=== PATIENT | male | born 1975 | race Caucasian/White ===

== ENCOUNTER 2018-11-09 09:38 | Outpatient (CLI) | payer SELFPAY ==
[2018-11-09 13:23] LABS: Anion Gap 9.7 mmol/L (3-11); BUN 24 mg/dL (7-18); CO2 26.3 mmol/L (21.0-32.0); CREATININE 0.82 mg/dL (0.70-1.30); Calcium 8.5 mg/dL (8.5-10.1); Calculated LDL 118 mg/dL; Chloride 108 mmol/L (98-107); Cholesterol 154 mg/dL (50-200); Glucose 89 mg/dL (70-100); HDL Cholesterol 24 mg/dL (40-60); Potassium 4.5 mmol/L (3.5-5.1); Sodium 144 mmol/L (136-145); Triglyceride 60 mg/dL (30-150)
== END 2018-11-09 09:58 ==
PROVIDERS: PCP Family Medicine; Visit Provider Family Medicine
DX: Z00.00 Encounter for general adult medical examination without abnormal findings (principal); Z13.220 Encounter for screening for lipoid disorders; Z13.228 Encounter for screening for other metabolic disorders
CPT/HCPCS: 36415; 80048; 80061; 83721

== ENCOUNTER 2021-01-28 15:49 | Emergency (ER) | payer SELFPAY ==
[2021-01-28 16:00] VITALS: BP 147/70; PULSE 85; RESP 28; TEMP 36.6; O2SAT 99
--- NOTE | 2021-01-28 16:00 | DI.CT_ITS ---
Exam(s) CT PELVIC WO EXAM: CT PELVIC WO CLINICAL HISTORY: pinned by truck, pain. TECHNIQUE: Imaging Protocol: Axial computed tomography images with coronal and sagittal reformatted images were created and reviewed. CONTRAST MATERIAL: Noncontrast COMPARISON: No exams were available for comparison FINDINGS: Bladder: Symmetric distention, no gross wall thickening. Bowel: No obstruction or bowel wall thickening. Moderate stool. Peritoneal cavity: No ascites, collection or mesenteric inflammatory response. Bones: No evidence of fracture. Sacralization of L5. SI joints and pubic symphysis are intact. Soft tissues: No hematoma. Small fatty containing umbilical hernia. IMPRESSION: No acute abnormality. RADIATION DOSE DELIVERED: 565.49mGy.cmTotal DLP DATA REPOSITORY: All CT scans at this facility are submitted to the National Radiology Data Registry (NRDR) Dose Index Registry (DIR) with the [employer] (ACR). RADIATION OPTIMIZATION: All CT scans at this facility use at least one of these dose optimization te chniques: automated exposure control; mA and/or kV adjustment per patient size (includes targeted exa ms where dose is matched to clinical indication); or iterative reconstruction.
--- NOTE | 2021-01-28 16:08 | W.ED.GENAD ---
Discharge Plan Disposition Patient Disposition: HOME Condition: Stable Discharge Details Chief Complaint: Trauma Clinical Impression: Contusion of hip, Trauma left hip Primary Care Provider: Unknown,Unknown ED Provider: Darryn Luis Home Meds and New Rx's Prescriptions: No Action NO DAILY MEDICATIONS RF: 0 Discharge Instructions Instructions: Contusion in Adults (ED) Additional Instructions: your imaging did not show any broken bones, you likely have a bone contusion you can take 1000mg tylenol and 600mg ibuprofen every 6 hours for pain as needed if you feel more ill, have severe worsening pain or new pain such as abdominal pain return to the emergency department Medical Decision Making 45 yo male comes in with hip pain. He was underneath his truck doing work when it moved and rolled hitting her hip and his other hip was against another object. He denies other injuries or hitting his head. He has bilateral hip pain and has abrasions over both lateral hips. He is able to lift the legs off the bed and has intact distal sensaiton. HAs no abdominal tenderness or chest tenderness, no neck or head pain. The truck did not roll over hip completely. Given his pain will obtain imaging to evaluate for fracture. Given the truck did not roll over his abdomen and had no other trauma elsewhere do not feel other imaging indicated at this time imaging negative, he feels much better and is ambulating without assistance, still no abdomen, chest or back tenderness. STable for d/c, return precautions given Differential Diagnosis Differential Diagnosis: fracture, contusion Imaging Data Radiologic Study: Attestation: I personally reviewed and interpreted this imaging study as follows: Imaging: CT Scan Radiologist's impression: PROCEDURE INFORMATION: Exam: CT Pelvis Without Contrast; Skeletal Exam date and time: 01/28/2021 4:34 PM Age: 45 years old Clinical indication: Injury or trauma; Other: Pinned by truck, pain; Crushing; Bilateral; Pelvic region; Pelvic area TECHNIQUE: Imaging protocol: Computed tomography images of the pelvis without contrast. Exam focused on the skeletal structures. COMPARISON: No relevant prior studies available. FINDINGS: Stomach and bowel: Moderate fecal retention pattern. No abnormal distention. Bones/joints: Unremarkable. No acute fracture. No dislocation. Soft tissues: Unremarkable. IMPRESSION: No evidence for acute posttraumatic abnormality. New lines small, fat containing periumbilical hernia. HPI General Mode of arrival: ambulatory. Date/Time Provider Initiated Documentation: 01/28/21 15:53. Limitations to Documentation: no limitations. Information obtained by: patient. History of Present Illness 45 year old M presents to the emergency department with the chief complaint of hip pain, described as severe, and it has been constant. No relieving factors improve symptom(s), No exacerbating factors reported . Patient notes no other symptoms.. Related Data Home Medications Medication Instructions Recorded Confirmed No Daily Medications 02/11/13 07/07/18 Allergies Allergy/AdvReac Type Severity Reaction Status Date / Time Penicillins Allergy Mild BLISTERS Unverified 01/28/21 16:04 HANDS azithromycin AdvReac Severe DEPRESSION/ Unverified 01/28/21 16:04 ANXIETY sertraline AdvReac Intermediate Erectile Unverified 01/28/21 16:04 dysfunction General Stated Complaint: Trauma MOON: 2 Review of Systems All systems reviewed & are unremarkable except as noted in HPI and below Constitutional Constitutional: Denies chills, Denies fever(s) and Denies weakness Cardiovascular Cardiovascular: Denies chest pain and Denies dyspnea Respiratory Respiratory: Denies cough and Denies dyspnea Gastrointestinal Gastrointestinal: Denies abdominal pain, Denies nausea and Denies vomiting Musculoskeletal Musculoskeletal: Denies joint swelling Neurologic Neurologic: Denies weakness PFSH Family History Mother , 86 No problems noted. Social History (Updated 10/19/18 @ 10:05 by Tai Gastelum) Smoking/Tobacco Use Status: Current every day Tobacco Type: cigarettes Quit status: considering quitting Smoking risk assessment performed?: Yes Alcohol Intake: current Alcohol Intake frequency: holidays/special occasions only Alcohol type: hard liquor Drug use: Never Substance use type: does not use Caregiver/Support person: No Household members: none Communication Needs: Corrective Lenses Pets and animals: Yes Pets and animals: dog(s) Sexually active: No Do you think of yourself as: straight/heterosexual Current gender identity: male What is your relationship status?: never How often do you talk on the phone with friends or family?: decline to answer How often do you get together with friends or relatives?: decline to answer How often do you attend anglican or restorationist services?: decline to answer Do you belong to any clubs or organized social groups?: no Panel score (0-1 are the most socially isolated patients): 0 What type of physical activity do you participate in: none Jodee/Pentecostal: Denominational Special jodee needs: No Seatbelt use: never Drive intox or ride w/intox boat driver: No Exam Const General: no acute distress Orientation: alert HENMT Head: normal to inspection Ears: external ears normal General nose exam: external nose normal Mouth: moist mucous membranes Eyes General: appearance normal, both eyes and all related structures Neck Neck: normal visual inspection Resp Effort & Inspection: normal respiratory effort and able to speak in complete sentences Cardio Rate: regular rate Skin General skin exam: no rashes or lesions noted Neuro General: patient alert and patient oriented x3 Extrem General: capillary refill normal Psych Mental Status: mental status grossly normal Course Vital Signs Vital signs: Vital Signs Temperature 36.6 C 01/28/21 16:00 Pulse 85 01/28/21 16:00 Respiratory Rate 28 H 01/28/21 16:00 Blood Pressure 147/70 H 01/28/21 16:00 Pulse Oximetry 99 01/28/21 16:00 Temperature 36.6 C 01/28/21 16:00 Temperature Source Temporal Artery Scan 01/28/21 16:00 Pulse 85 01/28/21 16:00 Respiratory Rate 28 H 01/28/21 16:00 Blood Pressure 147/70 H 01/28/21 16:00 Blood Pressure Position Supine 01/28/21 16:00 Pulse Oximetry 99 01/28/21 16:00 Oxygen Delivery Method Room Air 01/28/21 16:00 Oxygen Flow Rate 0 01/28/21 16:00 Pain Level 10 01/28/21 16:00
[2021-01-28] MEDS: oxyCODONE 10 MG TAB PO (16:11)
--- NOTE | 2021-01-28 16:55 | DI.VRAD_ITS ---
PROCEDURE INFORMATION: Exam: CT Pelvis Without Contrast; Skeletal Exam date and time: 01/28/2021 4:34 PM Age: 45 years old Clinical indication: Injury or trauma; Other: Pinned by truck, pain; Crushing; Bilateral; Pelvic region; Pelvic area TECHNIQUE: Imaging protocol: Computed tomography images of the pelvis without contrast. Exam focused on the skeletal structures. COMPARISON: No relevant prior studies available. FINDINGS: Stomach and bowel: Moderate fecal retention pattern. No abnormal distention. Bones/joints: Unremarkable. No acute fracture. No dislocation. Soft tissues: Unremarkable. IMPRESSION: No evidence for acute posttraumatic abnormality. New lines small, fat containing periumbilical hernia. Dictated and Authenticated by: Delisa Mcgovern MD. Ordering:GEOVANY Cates MD
[2021-01-28 17:14] VITALS: BP 138/85; PULSE 87; RESP 16; TEMP 37.4; O2SAT 96
[2021-01-28 17:28] VITALS: BP 138/85; PULSE 87; RESP 16; TEMP 37.4; O2SAT 96
== END 2021-01-28 17:25 | disposition home or self-care (01) ==
PROVIDERS: Emergency Provider Emergency Medicine
DX: S70.02XA Contusion of left hip, initial encounter (principal); W20.8XXA Other cause of strike by thrown, projected or falling object, initial encounter
CPT/HCPCS: 99284; 72192; 99283

== ENCOUNTER 2021-02-16 15:16 | Outpatient (REF) | payer SELFPAY ==
[2021-02-16 21:27] LABS: Abs Immature Grans 0.01 10^3/uL (0.0-0.06); Absolute Basophil Count 0.05 10^3/uL (0.0-0.2); Absolute Eosinophil Count 0.23 10^3/uL (0.0-0.7); Absolute Lymphocyte Count 2.26 10^3/uL (1.2-3.4); Absolute Monocyte Count 0.65 10^3/uL (0.1-0.8); Absolute Neutrophil Count 4.03 10^3/uL (1.2-6.7); Basophils % 0.7; Eosinophils % 3.2; HCT 45.8 % (40.0-50.0); HGB 15.4 g/dL (13.5-17.5); Immature Grans % 0.1; Lymphocytes % 31.3; MCH 32.7 pg (27.0-33.0); MCHC 33.6 % (32.0-36.0); MCV 97.2 fL (80-95); MPV 10.4 fL (8.0-11.0); Neutrophils % 55.7; Nucleated RBC 0 %; Platelet Count 342 10^3/uL (130-400); RBC 4.71 10^6/uL (4.36-5.78); RDW-SD 43.6 fL; WBC 7.23 10^3/uL (4.4-10.8)
[2021-02-16 21:30] LABS: ESR 8 mm/hr (0-15)
[2021-02-16 21:36] LABS: Anion Gap 5.4 mmol/L (3-11); BUN 10 mg/dL (7-18); CO2 33.6 mmol/L (21.0-32.0); CREATININE 1.1 mg/dL (0.70-1.30); Calcium 9.3 mg/dL (8.5-10.1); Chloride 106 mmol/L (98-107); Glucose 96 mg/dL (74-106); Potassium 4.3 mmol/L (3.5-5.1); Sodium 145 mmol/L (136-145); Uric Acid 6.4 mg/dL (3.5-7.2)
== END 2021-02-16 15:17 | disposition home or self-care (01) ==
LOC: NCHCN 15:16
PROVIDERS: Visit Provider Family Medicine
DX: M25.561 Pain in right knee (principal)
CPT/HCPCS: 80048; 85652; 84550; 85025

== ENCOUNTER 2021-09-21 11:57 | Day surgery (SDC) | payer SELFPAY ==
--- NOTE | 2021-09-20 11:47 | W.COLOREPORT ---
Colonoscopy Report Date of procedure: 09/21/21 Pre-op diagnosis general: Diarrhea. Possible IBS-M Post-op diagnosis procedure note: other (polyp) Surgeon: Hope Hammond Anesthesia Type: General:No Airway Complications: None Disposition: same day Prep: Miralax/Dulcolax Retraction Time: 10 Procedure Description: After informed consent was obtained the patient was taken to the procedure room and placed in a left decubitous position. Monitors were applied and a time out was done. The patients name, date of , procedure, allergies to medications and metal in their body was reviewed. The patient was then sedated. Once sedated and comfortable a rectal exam was done. External exam was normal. Internal exam revealed a normal sphincter tone and no palpable masses. The prostate nl. The scope was then introduced and retrofelexed. Grade 1 internal hemorrhoids were identified. The scope was then advanced to the cecum without difficulty. The TI and appendiceal orifice were identified. The prep was the BPS 2 in the cecum and right colon, and a BB PS 3 in all other segments for a total of 8. The scope was then slowly retracted over 10 minutes back into the rectum. He had a 0.75 pedunculated polyp at 20 cm. This is removed with a cold snare. The polyp was retrieved. There is no bleeding noted. There are no AVMs or diverticula visualized. The mucosa is pink and healthy with a normal vascular pattern. I could not cannulate the terminal ileum. Biopsies are taken of the cecum/80/60/40cm /rectum. All specimens are retrieved and no bleeding is noted. The scope was removed and the patient was woken up and taken back to Same day surgery in stable condition. The patient tolerated the procedure well and there were no immediate complications. Follow up: The patient should follow up, path pending, unless they develop changes in bowel habits or other new gastrointestinal complaints.
--- NOTE | 2021-09-20 11:48 | PDOC.DSDIS_ITS ---
Discharge Plan Disposition Patient Disposition: HOME Condition: Good Discharge Details Reason For Visit: colon scope Attending Provider: Hope Hammond Primary Care Provider: Sindi Montgomery Home Meds and New Rx's Prescriptions: Continued NO DAILY MEDICATIONS Discontinued polyethylene glycol 3350 17 gram/dose powder 238 g PO ONCE Qty: 238 0RF Rx Instructions: take per colonoscopy instructions bisacodyl [Dulcolax (bisacodyl)] 5 mg tablet,delayed release (DR/EC) 5 mg PO ONCE Qty: 4 0RF Rx Instructions: take per colonoscopy instructions Discharge Instructions Additional Instructions: DSU Colonoscopy Post- Op Instructions Instructions for Everyone who is given Anesthesia: For your safety, please do the following for the next twenty-four (24) hours: *Do Not operate a motor vehicle (car, truck, motorcycle, etc.) *Do Not drink alcoholic beverages or use any recreational drugs for the first 24 hours or while taking pain medications. The medications in your body may have a reaction that can be dangerous. *Do Not make any important decisions or sign any important papers. Findings: small polyp otherwise normal. Follow up: F/u in 2-3 wks. 1. No lifting over 20 pounds or strenuous activity for the first 24 hours after your procedure. After 24 hours there are no restrictions on your activity but you may feel fatigued for a few days. 2. After you arrive home you may have a light meal and return to your normal diet as you can tolerate it without feeling sick to your stomach. 3. You may have a bloated, gaseous feeling in your belly (abdomen) after a colonoscopy. Passing gas and belching will help. Walking or lying down on your left side with your knees flexed may relieve the discomfort. Call the office at [phone] (Office) or [phone] (Hospital) right away if you notice any of the following: a.Vomiting of blood or ?coffee ground stools?. b.Rectal bleeding 1Tbsp, blood clots or continuous bleeding. c.Severe belly (abdominal) pain. d.A hard distended belly (abdomen) and an inability to pass gas. 4. Please don?t expect to have a normal BM (bowel movement) for 2-3 days after your procedure. 5. If there are questions regarding the findings of your procedure, please contact your doctor 6. If you are unable to contact your doctor with a problem, contact the [facility] at [phone]. 7. Continue all your regular medications unless directed otherwise. I understand the above instructions and have no questions. Signature of Patient or Adult Escort Name of Responsible Adult Escort Signature of Nurse Date/Time Activity:: See above Diet:: See above Discharge Orders Discharge Orders: Discharge Order (Routine); Ordered 09/20/21 Ordered By: Hope Hammond
[2021-09-21 12:10] VITALS: BP 116/72; PULSE 67; RESP 17; TEMP 36.7; O2SAT 98
[2021-09-21] MEDS: Lactated Ringers 1,000 ML 80 ML IV (12:25)
--- NOTE | 2021-09-21 12:54 | W.ANESPRE ---
General Info Date of Service Date Performed: 09/21/21 Height: 5 ft 11 in Weight: 80.8 kg Body Mass Index (BMI): 24.8 Surgical Procedure: Operation Date: 09/21/21 12:35 Proposed Procedure Side Surgeon p Colonoscopy w/Biopsy Hope Hammond, Meds Allergies and Home Medications Allergies Allergy/AdvReac Type Severity Reaction Status Date / Time Penicillins Allergy Mild BLISTERS Unverified 09/21/21 12:17 HANDS azithromycin AdvReac Severe DEPRESSION/ Unverified 09/21/21 12:17 ANXIETY venlafaxine AdvReac Severe None noted Verified 09/21/21 12:17 on referral sertraline AdvReac Intermediate Erectile Unverified 09/21/21 12:17 dysfunction Home Medication Medication Instructions Recorded No Daily Medications 02/11/13 Current Visit Medications: Current Medications Generic Name Dose Route Start Last Admin Trade Name Freq PRN Reason Stop Dose Admin Hyoscyamine Sulfate 0.125 mg 09/20/21 11:49 Hyoscyamine 0.125 Mg Sl/Oral/Chew SL DIRECTED PRN Ringer's Solution 1,000 mls @ 80 mls/hr 09/21/21 06:00 09/21/21 12:25 IV 09/25/21 23:59 80 mls/hr INFUSION TRAVIS Administration IV Miscellaneous Supplies 1 each 09/21/21 06:00 Iv Access IV 09/25/21 23:59 DIRECTED TRAVIS Ondansetron HCl 4 mg 09/20/21 11:49 Ondansetron 4 Mg/2 Ml Vial IVP Q4H PRN PRN Nausea / Vomiting Sodium Chloride 0 ml 09/21/21 06:00 Normal Saline Flush 10 Ml Syr IV 09/25/21 23:59 PRN PRN Sodium Chloride 0 ml 09/21/21 06:00 Normal Saline 10 Ml Vial IJ 09/25/21 23:59 DIRECTED PRN Sterile Water 0 ml 09/21/21 06:00 Water,Injection,Sterile 10 Ml Vial IJ 09/25/21 23:59 DIRECTED PRN PFSH Active Problems Active Problems: Problem Status Onset Code Chondrocalcinosis M11.20 Current tobacco use Z72.0 Rectal discharge R19.8 Irregular bowel habits R19.8 Fecal incontinence R15.9 Medical History Medical History Bilateral low back pain without sciatica (06/23/15) Cataract Constipation by delayed colonic transit (12/08/15) Contusion of hip Dysthymia (10/13/15) IBS (irritable bowel syndrome) Left lateral epicondylitis (04/01/16) Trauma left hip Surgical History Surgical History History of knee surgery Tobacco Smoking/Tobacco Use Status: Current every day Tobacco Type: cigarettes Alcohol Alcohol Intake: current Alcohol intake frequency: holidays/special occasions only Alcohol type: hard liquor Substance Use Substance use: Never Substance use type: does not use Vital Signs and Lab Results Vital Signs Most Recent Vital Signs in EMR: Most Recent Vital Signs Temp Pulse Resp BP Pulse Ox 36.7 C 67 17 116/72 98 09/21/21 12:10 09/21/21 12:10 09/21/21 12:10 09/21/21 12:10 09/21/21 12:10 Lab Results Blood Type / Crossmatch: No Data to Display Complete Blood Count: No Data to Display Complete Metabolic Panel: No Data to Display Liver Function Panel: No Data to Display Coagulation Panel: No Data to Display Cardiac Panel: No Data to Display Arterial Blood Gas: No Data to Display Venous Blood Gas: No Data to Display Pancreas Panel: No Data to Display Thyroid Panel: No Data to Display Infectious Disease: No Data to Display Blood Cultures: No Data to Display Toxicology Panel: No Data to Display Anesthesia Assessment and Plan Anesthesia History Personal History: No History of Anesthesia Complications Family History: No Family History of Anesthesia Complications Exercise Tolerance Exercise Tolerance: Metabolic Equivalents>4 Pertinent Negatives Pertinent Negatives: No Symptoms of GERD Cardiac & Pulmonary Exam Cardiac Exam: Normal S1/S2 Heart Sounds Pulmonary Exam: Clear Bilateral Breath Sounds Implantable Cardiac Device Does patient have a Pacemaker or an ICD?: No Airway Exam Known Difficult Airway: No Mallampati Class: 1 Mouth Opening: Normal (> 3cm) Thyromental Distance: Greater than 3 cm Facial Hair: Full Nesbitt Neck Range of Motion: Full ROM Neck Circumference: Normal Teeth Condition: Normal Dentition ASA Classification ASA Score: ASA 2 Emergency Case?: No NPO Status NPO Status: NPO Clears >2 hours, Solids >8 hours Anesthesia Plan Resuscitation Status: Full Code Anesthesia Technique: General Anesthesia Airway Planned: Natural Airway Monitors Used: Standard Monitors
[2021-09-21 13:13] VITALS: BMI 24.8
--- NOTE | 2021-09-21 13:32 | BOWEL_PTH ---
PATIENT: Michael Barr I LOC: [facility] U#:[id number] AGE/SX: 45/M ROOM: RE09/21/[address]: Hope Hammond : 1975 BED: DIS: 09/21/2021 SPEC #: [id number] RECD: 09/21/21 15:54 STATUS: TIMOTHY REQ #: [id number] GEETA: 09/21/21 13:[address]: Hope Hammond DEPT: Surgical Specimen RECD BY: Britt Tamayo ENTERED: 09/21/21 15:56 SP TYPE: Bowel OTHR DR: Sindi Montgomery Tissues: 1 - BIOPSY BOWEL 2 - BIOPSY BOWEL 3 - BIOPSY BOWEL 4 - BIOPSY BOWEL 5 - BIOPSY BOWEL 6 - BIOPSY BOWEL Procedures: GROSS AND MICRO LEVEL 4 Comments: [id number]
[2021-09-21 14:07] VITALS: BP 116/72; PULSE 67; RESP 17; TEMP 36.7; O2SAT 98
--- NOTE | 2021-09-21 14:11 | W.ANESPOSTOP ---
Postoperative Evaluation Date, Time and Location Date Performed: 09/21/21 Time Performed: 14:12 Patient Location: Day Surgery Unit Vital Signs Most Recent Imported Vital Signs: Most Recent Vital Signs Temp Pulse Resp BP Pulse Ox 36.7 C 67 17 116/72 98 09/21/21 14:07 09/21/21 14:07 09/21/21 14:07 09/21/21 14:07 09/21/21 14:07 Most Recent Manually Entered Vital Signs: Adult Blood Pressure: 104/70 Heart Rate: 61 Respirations: 12 Oxygen Saturation (%): 99 Temperature (C): 36.3 C Pain Score (0-10 Scale): 0 Pain Score Most Recent Pain Score: Most Recent Pain Score Pain Level 0 09/21/21 12:10 Assessment Mental Status: Awake (Alert & Oriented to Patient Baseline) Airway and Respiratory Function: Patent airway with normal (patient baseline) respiratory exam Cardiovascular Function: Hemodynamically Stable Hydration Status: Adequately Hydrated Nausea & Vomiting: No Nausea or Vomiting Pain: Pt. Denies Any Pain Peripheral Nerve Block: Patient did not receive a nerve block
[2021-09-21 14:12] VITALS: BP 104/70; PULSE 61; RESP 12; TEMPC 36.3; O2SAT 99
[2021-09-21 14:30] VITALS: BP 116/79; PULSE 62; RESP 17; TEMP 36.6; O2SAT 98
== END 2021-09-21 15:15 | disposition home or self-care (01) ==
PROVIDERS: PCP Nurse Practitioner Family; Visit Provider Surgery
PROC: 0DJD8ZZ Inspection of Lower Intestinal Tract, Via Natural or Artificial Opening Endoscopic (ICD-10-PCS; CPT 45378; principal; 2021-09-21 12:30)
DX: R19.7 Diarrhea, unspecified (principal); K63.5 Polyp of colon; K64.0 First degree hemorrhoids; K63.89 Other specified diseases of intestine; K62.89 Other specified diseases of anus and rectum
CPT/HCPCS: 45385; 45380; 88305

== ENCOUNTER 2021-10-19 02:25 | Outpatient (CLI) | payer SELFPAY ==
--- OUTSIDE RECORDS SUMMARY | 2021-10-19 02:27 | XMS_ITS | Encounter Summary ---
:1975 Author Organization [facility] Address [address] [place] [address] Care Team Providers Name Role Phone Unavailable Primary Care Provider Unavailable Reason for Referral Radiology Services (Routine/Next Available) - New Request Specialty Diagnoses / Procedures Referred By Contact Refer red To Contact Diagnoses Left elbow pain Nathaniel Hickey MD Procedures [facility] US ELBOW [address] [place] [address] Referral ID Status Reason Start Date Expiration Date Visits V isits Requested Authorized [id number] New Request 08/07/2017 1 1 Encounter Details Date Type Department Care Team Description 08/07/2017 Orders Only [facility] Nathaniel Hickey Left elbo w pain Sports Medicine MD Lacy (Primary Dx) Program - [address] Geremias Hubbard, [facility] [address] [id number] Social History Tobacco Use Types Packs/Day Years Used Date Never Assessed Sex Assigned at Date Recorded Not on file documented as of this encounter Plan of Treatment Not on filedocumented as of this encounter Procedures Procedure Name Priority Date/Time Associated Diagnosis Comme nts MSK US ELBOW Routine 08/07/2017 17:26 EDT Left elbow pain Resu lts for this procedure are i n the results section . documented in this encounter Results [facility]K US ELBOW (08/07/2017 17:26 EDT) Anatomical Region Laterality Modality Other Specimen Narrative [facility] - 08/07/2017 17:26 EDT Non Reportable Exam Procedure Note KEY HOLDER, IMAGING - 08/08/2017 Non Reportable Exam Performing Organization Address City/State/ZIP Code Phon e Number [facility] [place] documented in this encounter Visit Diagnoses Diagnosis Left elbow pain - Primary Pain in joint, upper arm documented in this encounter
--- OUTSIDE RECORDS SUMMARY | 2021-10-19 02:27 | XMS_ITS | Encounter Summary ---
:1975 Author Organization [facility] Address [address] [place] [address] Care Team Providers Name Role Phone Unavailable Primary Care Provider Unavailable Reason for Visit Reason Onset Date Comments Referral Request 02/17/2020 Encounter Details Date Type Department Care Team Description 02/17/2020 Telephone [facility] Sports Nathaniel Hickey, Referral Request Medicine Program - Omer santiago MD [facility] [address] [place], [place] [address] [place], [place] [phone] (Wo rk) Social History Tobacco Use Types Packs/Day Years Used Date Current Every Day Smoker 1 27 Smokeless Tobacco: Former User Sex Assigned at Date Recorded Not on file documented as of this encounter Functional Status Functional Status Response Date of Assessment Because of a physical, mental, or emotional condition, Yes 09/16/2017 does this person have difficulty doing errands alone such as visiting a doctor's office or shopping? Cognitive Status Response Date of Assessment Because of a physical, mental, or emotional condition, No 09/16/2017 does this person have serious difficulty concentrating, remembering, or making decisions? documented as of this encounter Miscellaneous Notes Telephone Encounter - Nathaniel Hickey MD - 02/20/2020 1533 EDT Referral placed for after 03/21/[address] Mauri Ramos. Nathaniel Hickey M.D. 02/17/2020 15:36 documented in this encounter Plan of Treatment Not on filedocumented as of this encounter Visit Diagnoses Diagnosis Left lateral epicondylitis - Primary Lateral epicondylitis of elbow documented in this encounter
--- OUTSIDE RECORDS SUMMARY | 2021-10-19 02:27 | XMS_ITS | Encounter Summary ---
:1975 Author Organization [facility] Address [address] [place] [address] Care Team Providers Name Role Phone Sindi Montgomery PAVEL Primary Care Provider Reason for Visit Reason Onset Date Comments Paperwork request 10/03/2021 [place] [facility] Josy Sinha Encounter Details Date Type Department Care Team Description 10/03/2021 Telephone [facility] Mauri Ramos Paperwor k request Orthopedic Surgery - MD Tomi ([place] [facility] Cathy Marrero Dr [facility] [employer] [facility] and Katelyn) [address] [place], [place] [address] [place] [address] Social History Tobacco Use Types Packs/Day Years [...] this encounter Miscellaneous Notes Telephone Encounter - Katey Burger - 10/03/2021 1623 EDT Received a letter from patient's match maker concerning getting diagnotic testing authorized that dr. Ramos previously requested. Labelled and put in workers' comp box documented in this encounter Plan of Treatment Not on filedocumented as of this encounter Visit Diagnoses Not on filedocumented in this encounter Care Teams Yield Improvement Engineer Relationship Specialty Start Date End Date Sindi Montgomery FNP PCP - General 08/26/21 [address] [place] [address] documented as of this encounter
--- OUTSIDE RECORDS SUMMARY | 2021-10-19 02:27 | XMS_ITS | Encounter Summary ---
:1975 Author Organization [facility] Address [address] [place] [address] Care Team Providers Name Role Phone Unavailable Primary Care Provider Unavailable Reason for Referral Prior Authorization (Routine) - Specialty Report Received Specialty Diagnoses / Procedures Referred By Contact Refer red To Contact Orthopedic Surgery Diagnoses Left lateral epicondylitis Nathaniel Hickey Lisle, David Knight, MD MD [address] [place] [phone] Fax: Referral ID Status Reason Start Expiration Visits Visits Date Date Requested Authorized [id number] Specialty Specialty 11/04/2017 1 1 Report Services Received Required Question Answer Reason for Request: Left lateral elbow PRP injec tion Scheduling Comments (optional ? Scheduled 02/06/18 describe specific scheduling needs if applicable): Comments The purpose of this consult request is t o inform the scheduling staff that a procedure/surgery needs to be prior-auth orized before it is scheduled. Reason for Visit Reason Comments Follow-up Left elbow Encounter Details Date Type Department Care Team Description 11/04/2017 Office Visit [facility] Nathaniel Hickey Left late [facility] Sports Medicine MD Lacy epicondylitis (Primary Program - [facility] [address] Dx) [address] [facility] [phone] Social History Tobacco Use Types Packs/Day Years [...] making decisions? documented as of this encounter Progress Notes Nathaniel Hickey MD - 11/04/2017 1545 EDT Chief Complaint Patient presents with ??? Follow-up Left elbow SUBJECTIVE: Michael Barr is a 42 y.o. right hand dominant male who presents to the office to follow up now 3 months after his left elbow PRP procedure. He was been doing PT at at [facility] but this was a little rough. He then went to [facility]. This has been going well. He did have a setback about a week ago. More pain but not as bad as before the PRP injection. 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 He has some pain with steering but he swaps it. 3 out of 10 pain. He initially presented with a 2 year history of insidious onset left lateral elbow pain. 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 He has been followed by CAMERON Jay. He has had two corticosteroid injections that helpedquite a bit. The first helped for about seven months. He had a second injection that also helped forabout six months or so. This is a workers compensation injury. DOI 06/06/2015. He is working full duty. No restrictions. Past medical, past surgical, medications, allergies, social history and 12 system ROS were all documented on the intake form. These were reviewed and there are no changes. OBJECTIVE: 6 feet tall, 175 lbs. General: awake, alert, NAD, pleasant EENT: extraocular motion grossly intact Pulmonary: normal respirations, non-labored breathing Psych: normal affect, thoughts are logical and sequential Examination of the left elbow On observation, there is no effusion. There is no ecchymosis over flexor pronator region of forearm.No erythema. On palpation, there is trace tenderness over the lateral epicondyle. There is no tenderness over themedial epicondyle. No tenderness over the cubital tunnel. Range of motion of the elbow is full. Resisted elbow extension reveals 5/5 motor strength. Resisted wrist extension, resisted supination and resisted 3rd and 4th finger extension result in no tenderness at the lateral epicondylar region. Distal neurovascular examination is intact. DIAGNOSTIC DATA: MRI of the left elbow reveals a moderate grade partial tear of the common extensor tendon with tendinosis. Plain films of the left elbow taken today and independently reviewed by me including AP, lateral andoblique views reveal a normal study. ASSESSMENT: Left elbow lateral epicondylosis. He is here for his second follow up 3 months after a PRP injection. He is improving well. He had a small setback a few weeks ago. Still overall he is better than before. Workers compensation injury. PLAN: We discussed the diagnosis and multi-faceted treatment plan. He will continue PT at [facility]. Continue with the activity modification to avoid lifting or carrying. He will return in 2 months. We hope to discuss MMI at that time however if he is not fully improved we will consider repeat PRP. We did grab a date for early January for that PRP procedure just in casehe needs it. The patient verbalized understanding of the above and agreed with this plan. All of his questions were answered to his satisfaction today. 25 minutes of face to face time was spent with the patient, 15 minutes were spent on counseling and coordination of care of the patient's left elbow pain. Nathaniel Hickey M.D. 11/04/2017 15:48 Cc: Tereso Mckeon documented in this encounter Plan of Treatment Scheduled Referrals Name Type Priority Associated Diagnoses Order S chedule AMB CONS/FOLLOW UP Outpatient Routine Left lateral Ordered: PROCEDURE PRIOR Referral epicondylitis 11/04/2017 AUTHORIZATION REQUEST documented as of this encounter Visit Diagnoses Diagnosis Left lateral epicondylitis - Primary Lateral epicondylitis of elbow documented in this encounter
--- OUTSIDE RECORDS SUMMARY | 2021-10-19 02:27 | XMS_ITS | Encounter Summary ---
:1975 Author Organization [facility] Address [address] [place] [address] Care Team Providers Name Role Phone Unavailable Primary Care Provider Unavailable Reason for Referral Referral (Routine) - Pending Review Specialty Diagnoses / Procedures Referred By Contact Refer red To Contact Physical Medicine and Diagnoses Radial tunnel syndrome, left Mauri Ramos [facility] Procedures EMG/NERVE CONDUCTION STUDY Med/Rehab [address] [place] [address] [place] [phone] Fax: Referral ID Status Reason Start Date Expiration Date Visits V isits Requested Authorized [id number] Pending 05/12/2020 1 1 Review Reason for Visit Reason Comments Injury Consult (Routine) - Order Cancelled Specialty Diagnoses / Procedures Referred By Contact Refer red To Contact Orthopedic Surgery Diagnoses Left lateral epicondylitis Nathaniel Hickey [address] [facility] MD [address] [place] [phone] Referral ID Status Reason Start Expiration Visits Visits Date Date Requested Authorized [id number] Order Specialty 1 1 Cancelled Services 0 Required Encounter Details Date Type Department Care Team Description 05/12/2020 Office Visit [facility] Mauri Ramos Radial t unnel syndrome, left (Primary Dx); Orthopedic Surgery - MD Tomi Left lateral epicondylitis García Marrero [address] [place] [id number] [place], [place] [phone] Social History Tobacco Use Types Packs/Day Years Used Date Current Every Day Smoker 1 27 Smokeless Tobacco: Former User Tobacco Cessation: Ready to Quit: Yes; C ounseling Given: Yes Sex Assigned at Date Recorded Not on file documented as of this encounter Last Filed Vital Signs Vital Sign Reading Time Taken Comments Blood Pressure - - Pulse - - Temperature - - Respiratory Rate - - Oxygen Saturation - - Inhaled Oxygen Concentration - - Weight 79.4 kg (175 lb) 05/12/2020 1501 EST pe pt Height 182.9 cm (6') 05/12/2020 1501 EST per pt Body Mass Index 23.73 05/12/2020 1501 EST documented in this encounter Functional Status Functional Status Response [...] documented as of this encounter Progress Notes Mauri Ramos MD - 05/12/2020 1500 EST The patient presents with pain involving his Left elbow. The patient's pain is rated as 0 (No Pain)-2/10 and does not radiate. 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 After receiving a cortisone injection things got better until he changed jobs and began working at [employer] when pain increased. Patient states he received a second injection of cortisone and now has a change in color of the tissue at his elbow. Symptoms are associated with pain with driving, aching, weakness. REVIEW OF SYSTEMS: Yes No Yes No Fever/Chills x Joint pain x Fatigue x Muscle pain x Night sweats x Morning stiffness x Weight change x If yes, duration Gain or loss? Numbness/tingling x Headaches x If yes, where? Dizziness x Muscle weakness x Chest pain x Excessive thirst x Shortness of breath x Change in mood x Cough x Nervous or anxious x Nausea/vomiting x Sad or depressed x Abdomnial pains/cramps x Excessive bruising x Heartburn/Reflux x Urinary Changes x Rash x Balance Issues x The patient is a 44-year-old [id number] man who presents today with left elbow pain. Symptoms began about 5 years ago with a work-related injury due to repetitive opening of espinoza. 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 He had previous cortisone injections for lateral epicondylitis and these gave him relief from symptoms. In 2018 he had a PRP injection with Dr. Hickey which also gave him relieffrom most of his symptoms, however at this point he feels like his left elbow is not normal. He continues to have pain that he rates as anywhere from a 0-2 out of 10. He points to the lateral elbow as the site of the pain. He feels weak at his left arm. He denies any numbness or tingling associated with this. The patient has done extensive physical therapy for this problem. For the lateral epicondylitis he has done anti-inflammatory modalities but also has done strengthening exercises. With his eccentric strengthening exercises for wrist extension he was lifting up to an 8 to 10 pound weight. He has not done this for the last couple months as it did not seem to be fully getting rid of his continued pain. The past medical, family and social history have been reviewed in the patient chart. OBJECTIVE: Ht 182.9 cm (72) Comment: per pt Wt 79.4 kg (175 lb) Comment: pe pt BMI 23.73 kg/m?? Psych: He is alert and oriented x 3 with normal affect. Constitutional: He is well-developed and in no significant distress. Eyes: Sclerae clear. Heart: Regular rate and rhythm Resp: Breathing is regular and nonlabored without audible wheezing. Musculoskeletal: Left elbow: Very mild tenderness is present over the lateral epicondyle. Elbow range of motion is full. Patient really has no pain with resisted wrist extension with the elbow fully extended. The patient does have tenderness over his radial tunnel. A Tinel's sign over the radial tunnel is positive andthe patient has a positive radial tunnel compression test. Supination against resistance does partially recreate the patient's symptoms. The patient has full pronation and supination of his elbow/forearm. No instability is noted at the elbow with varus or valgus stress. Right elbow: No tenderness or swelling is present. Elbow range of motion is full. Provocative testing at the lateral epicondyle and radial tunnel is normal and does not produce any similar pain. The patient has no instability with varus or valgus stress of the elbow. Was able to independently viewed the patient's previous MRI of the elbow. This demonstrated some edema within the common extensor mechanism with no significant joint abnormalities. ASSESSMENT/PLAN: Encounter Diagnoses Name Primary? Left lateral epicondylitis ??? Radial tunnel syndrome, left Yes I believe that the patient has been appropriately treated for his left lateral epicondylitis but probably carries a secondary diagnosis of radial tunnel syndrome. This is probably the cause for the patient's partial failure to fully get rid of symptoms. I would like to try and confirm this with an EMG/nerve conduction study. I will follow-up with the patient after that study is complete. If we see noevidence of radial tunnel syndrome we will discuss further work-up with an MRI versus a cortisone injection into the radial tunnel to try to confirm the diagnosis in that manner. documented in this encounter Plan of Treatment Scheduled Orders Name Type Priority Associated Diagnoses Order S chedule EMG/NERVE CONDUCTION Procedures Routine Radial tunnel Ordere d: 05/12/2020 STUDY syndrome, left documented as of this encounter Visit Diagnoses Diagnosis Radial tunnel syndrome, left - Primary Left lateral epicondylitis Lateral epicondylitis of elbow documented in this encounter
--- OUTSIDE RECORDS SUMMARY | 2021-10-19 02:27 | XMS_ITS | Encounter Summary ---
:[address] [facility] Address [address] [place] [address] Care Team Providers Name Role Phone Sindi Montgomery PAVEL Primary Care Provider Encounter Details Date Type Department Care Team Description 09/21/2021 Lab Requisition [facility] for other Pathology & M, DO general examination Laboratory Medicine - [email or web address] [facility] [address] [place] [phone] Social History Tobacco Use Types Packs/Day Years Used Date Current Every Day Smoker 05 24 Smokeless Tobacco: Former User Sex Assigned at [...] making decisions? documented as of this encounter Plan of Treatment Not on filedocumented as of this encounter Procedures Procedure Name Priority Date/Time Associated Diagnosis Comme nts SURGICAL PATHOLOGY Today 09/21/2021 13:32 Encounter for othe r Results for this EDT general examination procedur e are in the results section. documented in this encounter Results SURGICAL PATHOLOGY (09/21/2021 13:32 EDT) Note to Patient The following [facility] pathology results CENTER have been interpreted LABORATORY by your pathologist SERVICES and may be available to you before your health provider has had the opportunity to review them. Please allow time for your provider to receive these results and explore management options, if applicable. Final Diagnosis A. COLON, 20 CM, POLYP, BIOPSY: [facility] DICAL - Hyperplastic polyp. CENTER LABORATORY B. COLON, CECUM, BIOPSY: SERVICES - Colonic mucosa with no specific pathologic features. C. COLON, 80 CM, BIOPSY: - Colonic mucosa with no specific pathologic features. D. COLON, 60 CM, BIOPSY: - Colonic mucosa with no specific pathologic features. E. COLON, 40 CM, BIOPSY: - Colonic mucosa with no specific pathologic features. F. RECTUM, BIOPSY: - Rectal mucosa with no specific pathologic features. Attestation By the signature [facility] Electronica lly below, the attending CENTER signed by Heather physician certifies LABORATORY MD Chely on that they have 1) SERVICES 09/26/2021 a t 1622 personally conducted a gross and/or microscopic examination of the described specimen(s), and/or personally interpreted the results of laboratory testing of the described specimen(s), and 2) personally rendered or confirmed the above diagnosis. Clinical History Diarrhea [facility] LABORATORY SERVICES Gross Description A. [facility] MED[facility] Received in formalin wild d with proper patient identification (initials R, P) and polyp @ 20 cm is an irregular to nodular seo-brown tissue, 1.0 x 0.3 x 0.2 cm. Entirely submitted in A1. CENTER LABORATORY B. SERVICES Received in formalin wild d with proper patient identification (initials R, P) and Bx cecum is a pale mcdermott tissue, 0.2 x 0.1 by less than 0.1 cm. Entirely submitted in B1. C. Received in formalin wild d with proper patient identification (initials R, P) and Bx @ 80 cm is a seo irregular tissue, 0.4 x 0.12 x 0.1 cm. Entirely submitted in C1. D. Received in formalin wild d with proper patient identification (initials R, P) and Bx @ 60 cm? is a seo irregular tissue, 0.4 x 0.2 x 0.1 cm. Entirely submitted in D1. E. Received in formalin wild d with proper patient identification (initials R, P) and Bx @ 40 cm is a seo irregular tissue, 0.3 x 0.2 x 0.1 cm. Entirely submitted in E1. F. Received in formalin wild d with proper patient identification (initials R, P) and rectal Bx is a seo-brown tissue, 0.4 x 0.2 x 0.2 cm. Entirely submitted in F1. CAMERON CHAIREZ(ASCP) 2021 8:28 Performing Lab [facility] LABORATORY SERVICES Scanned Images [facility] LABORATORY SERVICES Specimen Tissue - Specimen from rectum (specimen) Tissue specimen (specimen) - Cecum struc ture (body structure) Tissue specimen (specimen) - Entire colo n (body structure) Tissue specimen (specimen) - Entire colo n (body structure) Tissue specimen (specimen) - Entire colo n (body structure) Tissue specimen (specimen) - Specimen fr om rectum (specimen) Performing Organization Address City/State/ZIP Code Phon e Number [facility] LABORATORY [address] [place] [address] SERVICES documented in this encounter Visit Diagnoses Diagnosis Encounter for other general examination documented in this encounter Care Teams Escort Vehicle Driver Relationship Specialty Start Date End Date Sindi Montgomery FNP PCP - General 08/26/21 [address] [place] [address] documented as of this encounter
--- OUTSIDE RECORDS SUMMARY | 2021-10-19 02:27 | XMS_ITS | Encounter Summary ---
:1975 Author Organization [facility] Address [address] [place] [address] Care Team Providers Name Role Phone Unavailable Primary Care Provider Unavailable Encounter Details Date Type Department Care Team Description 05/12/[address] [facility] Mauri Ramos MD Orthopedic Surgery - [facility] [address] [facility] [address] [place], [place] [address] [address] [place], [place] [address] [phone] Social History Tobacco Use Types Packs/Day Years [...] documented as of this encounter Progress Notes Jennifer Hameed MA - 05/12/2020 1610 EST Patient met with DR Ramos today , DR Ramos has decided to hold off on getting an MRI at this time. DR Ramos has ordered an EMG instead. Patient is aware. We have spoke to MRI scheduling and the order has been cancelled. documented in this encounter Plan of Treatment Not on filedocumented as of this encounter Visit Diagnoses Not on filedocumented in this encounter
--- OUTSIDE RECORDS SUMMARY | 2021-10-19 02:27 | XMS_ITS | Encounter Summary ---
:1975 Author Organization [facility] Address [address] [place] [address] Care Team Providers Name Role Phone Unavailable Primary Care Provider Unavailable Reason for Referral PT/OT/ST (Routine) - Authorized Specialty Diagnoses / Procedures Referred By Contact Refer red To Contact Diagnoses Left lateral epicondylitis Nathaniel Hickey MD [address] [place] [phone] Referral ID Status Reason Start Expiration Visits Visits Date Date Requested Authorized [id number] Authorized Specialty 08/07/2017 1 1 Services Required Question Answer Reason for Request: left lateral epicondylitis, PRP on 08/07/17 Return Visit to Provider: 6 weeks Comments Please see protocol. industrial trainer services incl uded. Reason for Visit Reason Comments Elbow Pain left Prior Authorization (Routine) - Specialty Report Received Specialty Diagnoses / Procedures Referred By Contact Refer red To Contact Diagnoses Left elbow pain Nathaniel Hickey MD [address] [place] [phone] Referral ID Status Reason Start Expiration Visits Visits Date Date Requested Authorized [id number] Specialty Specialty 06/13/2017 1 1 Report Services Received Required Encounter Details Date Type Department Care Team Description 08/07/2017 Office Visit [facility] Nathaniel Hickey late [facility] Sports Medicine MD Lacy epicondylitis (Primary Program - [address] Dx) [address] [place] [address] Dr Geremias Hubbard, [facility] [phone] [phone] Social History Tobacco Use Types Packs/Day Years Used Date Never Assessed Sex Assigned at Date Recorded Not on file documented as of this encounter Ordered Prescriptions Prescription Sig Dispensed Refills Start Date End Date oxyCODONE-acetaminophen Take 1 Tab by mouth 6 Tab 0 03/2018 (PERCOCET) 5-325 mg per every 4 hours as tabletIndications: Left needed for Pain. lateral epicondylitis Daily Max: 6 Tabs documented in this encounter Progress Notes Amira Larios - 08/07/2017 1330 EDT I. Patient is here for an US guided injection- Lidocaine 2% 20 mg/mL 2cc 1. Med given in left elbow 2. Med lot number: [id number] NDC number: 9400-0900-04 3. Exp date: 12/14 Clinical Education Specialist: [employer] I. Patient is here for an US guided injection -Bupivacaine 0.5 % 50mg/10mL 2cc 1. Med given in left elbow 2. Med lot number: [id number] ND number: [id number] 3. Exp date: 08/14 Clinical Education Specialist: [facility] Amira Larios 08/07/17 Nathaniel Centeno MD - 08/07/2017 1330 EDT Chief Complaint Patient presents with ??? Elbow Pain left SUBJECTIVE: Michael Barr is a 41 y.o. male who presents to the office for his platelet rich plasma procedure into his left lateral elbow. Patient has a diagnosis of recalcitrant left lateral epicondylosis that has failed PT and corticosteroid injections. Risks, benefits and alternatives were discussed with the patient and consent was obtained. The finalVerification/time out immediately prior to incision/procedure has been conducted by me and members of the procedural team as appropriate to their involvement in the procedure. The patient???s identity,procedure, and when applicable the: side/site, patient position, availability of implants and any special equipment or special requirements was verbally confirmed prior to the procedure Procedure Note: Left lateral elbow musculoskeletal ultrasound guided platelet rich plasma injection for lateral epicondylosis Area of max tenderness palpated, prepped with isopropyl alcohol. Under sterile conditions, proximal ECRB region was infused with 3 cc 0.5% marcaine. After adequate anesthesia, the lateral elbow was imaged using linear transducer. The ECRB was localized at its insertion on the lateral epicondyle. The tendon was fenestrated at least 50 times with theneedle. During this fenestration process, 3 cc of platelet rich plasma was injected to the ECRB and insertion. The needle was visualized with MSK US as it entered the tendon. Patient tolerated the procedure well. After care was reviewed including icing and activity modification. The patient was placed in a sling. The patient is to use the arm sparingly for 24 hours. Avoid NSAIDs. The patient should take tylenol for pain. Start gentle stretching in about 24 hours for 2 weeks. Follow up in 6 weeks. I discussed all of the above verbally with patient, no barriers to understanding. The patient indicated understanding and agrees to the above plan. Nathaniel Hickey M.D. 08/07/2017 14:51 documented in this encounter Plan of Treatment Scheduled Referrals Name Type Priority Associated Diagnoses Order S chedule AMB CONS/FOLLOW UP Outpatient Referral Routine Left lateral Or dered: PHYSICAL THERAPY epicondylitis 08/07/2017 documented as of this encounter Visit Diagnoses Diagnosis Left lateral epicondylitis - Primary Lateral epicondylitis of elbow documented in this encounter Orders Equipment Count Last Ordered Date First Ordered Date PADDED SLING - SLING/SWATHE (L3650) 1 08/07/2017 documented in this encounter
--- OUTSIDE RECORDS SUMMARY | 2021-10-19 02:27 | XMS_ITS | Encounter Summary ---
:1975 Author Organization [facility] Address [address] [place] [address] Care Team Providers Name Role Phone Unavailable Primary Care Provider Unavailable Reason for Visit Reason Comments Follow-up DOI 2.2016 Work Related Injury DOI 2.2016 Encounter Details Date Type Department Care Team Description 02/07/2020 Office Visit [facility] Nathaniel Hickey late [facility] Sports Medicine MD Lacy epicondylitis (Primary Program - [place] [address] Dx) [address] [place]rem[place], [facility] [phone] [phone] Social History Tobacco Use Types Packs/Day Years [...] - - Weight 79.4 kg (175 lb) 02/07/2020921 EDT Height 182.9 cm (6') 02/07/2020921 EDT Body Mass Index 23.73 02/07/2020 09 EDT documented in this encounter Functional Status Functional [...] encounter Progress Notes Nathaniel Hickey MD - 02/07/2020 0930 EDT Chief Complaint Patient presents with ??? Left Elbow - Follow-up, Work Related Injury DOI 2.2016 SUBJECTIVE: Michael Barr is a 44 y.o. right hand dominant male who presents to the office to follow up for his work related left elbow pain. He seems to be having more pain. Still with some issues. Has been going to PT at [facility]. Has been doing eccentrics and having dry needling. Not really working. He did have one PRP procedure performed July 2017. This may have worked well but the pain has returned. He noticed some additional pain when he grocery shopped with a hand held basket. He didn't have a lot of weight but was carrying for about 15 minutes. More pain laterally. He doesn't feel his elbow should feel like this. He had a permanency rating and was given a 6% loss but it seems that workers compensation has him atzero. He initially presented with a 2 year history of insidious onset left lateral elbow pain. 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 This is a workers compensation injury. DOI 06/06/2015. He has been followed by CAMERON Jay. He had two corticosteroid injections that helped quite a bit. The first helped for about seven months. He had a second injection that also helped for about six months or so. He is working full duty. No restrictions. [...] of forearm.No erythema. On palpation, there is mild tenderness over the lateral epicondyle. There is no tenderness over the medial epicondyle. No tenderness over the cubital tunnel. Range of motion of the elbow is full. Resisted elbow extension reveals 5/5 motor strength. Resisted wrist extension, resisted supination and resisted 3rd and 4th finger extension result in tenderness at the lateral epicondylar region. Distal neurovascular examination is intact. DIAGNOSTIC DATA: MRI of the left elbow performed 04/29/2017 reveals a moderate grade partial tear of the common extensor tendon with tendinosis. Plain films of the left elbow taken today and independently reviewed by me including AP, lateral andoblique views reveal a normal study. ASSESSMENT: Left elbow lateral epicondylosis. He responded well to the PRP procedure in 2018 but his pain has returned. He still has occasional pain and some weakness. He is not happy with the elbow. Workers compensation injury. DOI 06/06/2015 PLAN: We discussed the diagnosis and multi-faceted treatment plan. He is not MMI at this time. We discussed repeating the PRP or surgical intervention. He does want to do something further. He will continue PT. We will repeat the MRI of the left elbow and have him discuss surgical options with Dr. Mauri Ramos. The patient verbalized understanding of the above and agreed with this plan. All of his questions were answered to his satisfaction today. 25 minutes of face to face time was spent with the patient, 15 minutes were spent on counseling and coordination of care of the patient's left elbow pain. Nathaniel Hickey M.D. 02/07/2020 9:33 Cc: Tereso Mckeon MD documented in this encounter Plan of Treatment Not on filedocumented as of this encounter Visit Diagnoses Diagnosis Left lateral epicondylitis - Primary Lateral epicondylitis of elbow documented in this encounter
--- OUTSIDE RECORDS SUMMARY | 2021-10-19 02:27 | XMS_ITS | Encounter Summary ---
:1975 Author Organization [facility] Address [address] [place] [address] Care Team Providers Name Role Phone Unavailable Primary Care Provider Unavailable Reason for Visit Reason Onset Date Comments Appointment Related 12/04/2018 cancel Encounter Details Date Type Department Care Team Description 12/04/2018 Telephone [facility] Nathaniel Hickey nt Related Sports Medicine Program MD Lacy (cancel) - [facility] [employer] [address] [facility] [address] [place], [place], [place] [address] [place] [address] Social History Tobacco Use Types Packs/Day Years [...] this encounter Miscellaneous Notes Telephone Encounter - Mikaela Rose - 12/04/2018 1818 EDT PAS Message: William from [facility] calling to cancel appointment scheduled December 08 at 9:00am at [facility] with Dr Nathaniel Hickey. Patient has a conflict in schedule. Patient would like a call back to reschedule. [phone]. documented in this encounter Plan of Treatment Not on filedocumented as of this encounter Visit Diagnoses Not on filedocumented in this encounter
--- OUTSIDE RECORDS SUMMARY | 2021-10-19 02:27 | XMS_ITS | Encounter Summary ---
:1975 Author Organization [facility] [place] [address] Care Team Providers Name Role Phone None Primary Care Provider Unavailable Encounter Details Date Type Department Care Team Description 04/11/2017 Hospital Encounter Radiology Library at [facility] Viktor [facility] [address] [place] [address] [place], [place] [phone] Social History Tobacco Use Types Packs/Day Years Used Date Never Assessed Sex Assigned at Date Recorded Not on file documented as of this encounter Plan of Treatment Not on filedocumented as of this encounter Procedures Procedure Name Priority Date/Time Associated Diagnosis Comme nts FILM LIBRARY Routine 04/11/2017 12:00 AM Pain Results for this STORAGE ONLY MR EST procedure ar e in UPPER EXTREMITY the results section. documented in this encounter Results Film Library- Storage Only MR Upper Extremity (04/11/2017 12:00 AM EST) Specimen (Source) Anatomical Location Collection Method / Collectio n Time Received Time / Laterality Volume Narrative RAD - 07/08/2017 5:59 PM EDT This result has an attachment that is no t available. This exam is for storage only and is aut o-finalizing. Viktor Lindquist MD IMG FILM LIBRARY ORDERABLES Performing Organization Address City/State/ZIP Code Phon e Number RAD [place], [place] documented in this encounter Visit Diagnoses Diagnosis Pain Generalized pain documented in this encounter Care Teams Wellness Program Manager Relationship Specialty Start Date End Date None PCP - General 03/20/10 07/13/17 None documented as of this encounter
--- OUTSIDE RECORDS SUMMARY | 2021-10-19 02:27 | XMS_ITS | Encounter Summary ---
:1975 Author Organization [facility] Address [address] [place] [address] Care Team Providers Name Role Phone Unavailable Primary Care Provider Unavailable Reason for Visit Reason Comments Elbow Pain lt elbow Prior Authorization (Routine) - Specialty Report Received Specialty Diagnoses / Procedures Referred By Contact Refer red To Contact Orthopedic Surgery Diagnoses Left lateral epicondylitis Nathaniel Hickey, Nathaniel Hickey MD MD [address] [place] [phone] Fax: Referral ID Status Reason Start Expiration Visits Visits Date Date Requested Authorized [id number] Specialty Specialty 11/04/2017 1 1 Report Services Received Required Encounter Details Date Type Department Care Team Description 01/06/2018 Office Visit [facility] Nathaniel Hickey Left late [facility] Sports Medicine MD Lacy epicondylitis (Primary Program - [address] [facility] [place] Dx) [address] [facility] [phone] Social History Tobacco Use Types [...] - - Weight 79.4 kg (175 lb) 01/06/2018 1607 EDT Height 182.9 cm (6') 01/06/2018 1607 EDT Body Mass Index 23.73 01/06/2018 1607 EDT documented in this encounter Functional Status [...] making decisions? documented as of this encounter Discharge Disposition Disposition Code Departure Means Destination Auto Discharge documented in this encounter Progress Notes Nathaniel Hickey MD - 01/06/2018 1545 EDT No chief complaint on file. SUBJECTIVE: Michael Barr is a 42 y.o. right hand dominant male who presents to the office to follow up now 5 months after his left elbow PRP procedure. He was been doing PT at at [facility] but this was a little rough. He then went to [facility]. This has been going well. He has been discharged from PT. 0 out of 10 pain. He initially presented [...] and sequential Examination of the left elbow Not examined DIAGNOSTIC DATA: MRI of the left elbow reveals a moderate grade partial tear of the common extensor tendon with tendinosis. Plain films of the left elbow taken today and independently reviewed by me including AP, lateral andoblique views reveal a normal study. ASSESSMENT: Left elbow lateral epicondylosis. He is here for his follow up 5 months after a PRP injection. He is improving well. Back to baseline. Workers compensation injury. PLAN: We discussed the diagnosis and multi-faceted treatment plan. He will be MMI as of January 26, 2018. It is possible that he will have a return of his symptoms. He will also likely need physical therapy intermittently in the future. No further interventions planned. The patient verbalized understanding of the above and agreed with this plan. All of his questions were answered to his satisfaction today. 25 minutes of face to face time was spent with the patient, 15 minutes were spent on counseling and coordination of care of the patient's left elbow pain. Nathaniel Hickey M.D. 01/06/2018 16:04 Cc: Tereso Mckeno documented in this encounter Plan of Treatment Not on filedocumented as of this encounter Visit Diagnoses Diagnosis Left lateral epicondylitis - Primary Lateral epicondylitis of elbow documented in this encounter
--- OUTSIDE RECORDS SUMMARY | 2021-10-19 02:27 | XMS_ITS | Encounter Summary ---
:[address] [facility] Address [address] [place] [address] Care Team Providers Name Role Phone Unavailable Primary Care Provider Unavailable Encounter Details Date Type Department Care Team Description 12/13/2019 Orders Only [facility] Nathaniel Hickey Left nicole gilman pain Sports Medicine MD Lacy (Primary Dx) Program - [facility] [address] [facility] [address] [place], [facility] [phone] [phone] Social History Tobacco Use Types Packs/Day Years [...] of this encounter Visit Diagnoses Diagnosis Left elbow pain - Primary Pain in joint, upper arm documented in this encounter
--- OUTSIDE RECORDS SUMMARY | 2021-10-19 02:27 | XMS_ITS | Encounter Summary ---
:1975 Author Organization [facility] Address [address] [place] [address] Care Team Providers Name Role Phone Unavailable Primary Care Provider Unavailable Reason for Visit Reason Comments Elbow Pain Encounter Details Date Type Department Care Team Description 08/13/2017 Telephone [facility] Nathaniel Ovalle MD Elbow Pain Medicine Program - [place] [address] [place], [place] [phone] (Wo rk) Social History Tobacco Use Types Packs/Day Years Used Date Never Assessed Sex Assigned at Date Recorded Not on file documented as of this encounter Miscellaneous Notes Telephone Encounter - Amira Larios - 08/13/2017 1631 EDT Michael called with a question about his elbow pain. He finds that his left elbow hurts when he is lying in bed and holding his phone with his elbows bend for an extended period of time. Does Dr. Hickey think that the PRP injection might alleviate this pain? I said that I would pass this question along. Amira Larios documented in this encounter Plan of Treatment Not on filedocumented as of this encounter Visit Diagnoses Not on filedocumented in this encounter
--- OUTSIDE RECORDS SUMMARY | 2021-10-19 02:27 | XMS_ITS | Encounter Summary ---
:1975 Author Organization [facility] Address [address] [place] [address] Care Team Providers Name Role Phone Unavailable Primary Care Provider Unavailable Reason for Visit Reason Comments Elbow Pain LT LATERAL ELBOW DOI 2.9.16 NO DOS W/C Encounter Details Date Type Department Care Team Description 10/02/2018 Office Visit [facility] Nathaniel Hickey Left late [facility] Sports Medicine MD Lacy epicondylitis (Primary Program - [place] [address] Dx) [address] [place], [facility] [phone] [phone] Social History Tobacco Use Types Packs/Day Years [...] - - Weight 79.4 kg (175 lb) 10/02/2018 0958 EDT Height 182.9 cm (6') 10/02/2018 0958 EDT Body Mass Index 23.73 10/02/2018 0958 EDT documented in this encounter Functional Status [...] making decisions? documented as of this encounter Ordered Prescriptions Prescription Sig Dispensed Refills Start Date End Date diclofenac sodium 1 % Apply 1 - 2 inches of 100 g 2 10/201812/13/2019 gel gel topically to left elbow 2 - 4 times a day as needed for pain. documented in this encounter Progress Notes Nathaniel Hickey MD - 10/02/2018 1000 EDT Chief Complaint Patient presents with ??? Elbow Pain LT LATERAL ELBOW DOI 2.9.16 NO DOS W/C SUBJECTIVE: Michael Barr is a 43 y.o. right hand dominant male who presents to the office to follow up now about 14 months after his left elbow PRP procedure. He was last here on 01/06/18. He is having a little more pain in the lateral elbow. More pain over the winter with extreme cold. He is having pain when he flexes the elbow and uses the hand. 1 out of 10 pain. He initially presented with a 2 year history of insidious onset left lateral elbow pain. 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 He has been followed by CAMERON aJy. He had two corticosteroid injections that helped quite a bit. The first helped for about seven months. He had a second injection that also helped for about six months or so. This is a [...] there is mild tenderness over the lateral epicondyle and posterolateral elbow. There is no tenderness over the medial [...] a normal study. ASSESSMENT: Left elbow lateral epicondylitis. Recurrent however it is more acute today. He has had a small set back. He had a PRP that helped about 14 months ago. Workers compensation injury. PLAN: We discussed the diagnosis and multi-faceted treatment plan. He is not MMI at this time. Corticosteroid would not be advised here. We discussed other antiinflammatory options. We reviewed oral and topicals. We decided to order a topical nsaid, diclofenac gel 1%. It is possible that he will have a return of his symptoms. He will also likely need physical therapyintermittently in the future. He will return in about 2 months. The patient verbalized understanding of the above and agreed with this plan. All of his questions were answered to his satisfaction today. 25 minutes of face to face time was spent with the patient, 15 minutes were spent on counseling and coordination of care of the patient's left elbow pain. Nathaniel Hickey M.D. 10/02/2018 10:11 Cc: Tereso Mckeon MD documented in this encounter Plan of Treatment Not on filedocumented as of this encounter Visit Diagnoses Diagnosis Left lateral epicondylitis - Primary Lateral epicondylitis of elbow documented in this encounter
--- OUTSIDE RECORDS SUMMARY | 2021-10-19 02:28 | XMS_ITS | Encounter Summary ---
:[address] [facility] Address [address] [place] [address] Care Team Providers Name Role Phone Tereso Lam MD Primary Care Provider Unavailable Encounter Details Date Type Department Care Team Description 04/29/2017 Results Only Imaging [facility]- Unknown, [facility] Provider, Social History Tobacco Use Types Packs/Day Years Used Date Never Assessed Sex Assigned at Date Recorded Not on file documented as of this encounter Plan of Treatment Pending Results Name Type Priority Associated Diagnoses Date/Ti me OUTSIDE IMAGES - MR [facility] 05/2017 15:14 EST documented as of this encounter Visit Diagnoses Not on filedocumented in this encounter Care Teams Gasoline Catalyst Operator Relationship Specialty Start Date End Date Tereso Lam MD PCP - General 03/07/15 04/29/17 documented as of this encounter
--- OUTSIDE RECORDS SUMMARY | 2021-10-19 02:28 | XMS_ITS | Encounter Summary ---
:1975 Author Organization [facility] Address [address] [place] [address] Care Team Providers Name Role Phone Unavailable Primary Care Provider Unavailable Reason for Visit Reason Onset Date Comments Returning Call 05/20/2017 Encounter Details Date Type Department Care Team Description 05/20/2017 Telephone [facility] Fernando & Rolando Mendoza, Returning Call Upper Extremity Program - [place] [address] [place], [place] [phone] (Wo rk) Social History Tobacco Use Types Packs/Day Years Used Date Never Assessed Sex Assigned at Date Recorded Not on file documented as of this encounter Miscellaneous Notes Telephone Encounter - Mario Flowersis - 05/20/2017 1121 EST Michael had left another message saying that someone had called him that he assumed was Esperanza and he would like another call back. When I called back Michael did answer and we discussed his upcoming appointment dates for therapy and to meet Nathaniel Hickey. After this Michael said he had some questions aboutwhat the recovery time would be if he were to have a PRP injection as he believed it would be 12 weeks. I told him that I was unsure but based on the handout we have that seemed to be correct. Michael started to ask more specific questions about the procedure. When I attempted to tell him that he wouldhave to speak with Dr. Hickey's clinic to answer those questions he became very angry, yelling at me to stop talking, accusing me of talking over him, then telling me not to call him until I found someone that could answer his questions and they can call him. At this point he told me that the conversation between us was over and hung up. documented in this encounter Plan of Treatment Not on filedocumented as of this encounter Visit Diagnoses Not on filedocumented in this encounter
--- OUTSIDE RECORDS SUMMARY | 2021-10-19 02:28 | XMS_ITS | Encounter Summary ---
:1975 Author Organization [facility] Address [address] [place] [address] Care Team Providers Name Role Phone Unavailable Primary Care Provider Unavailable Encounter Details Date Type Department Care Team Description 06/12/2017 - Hospital Encounter [facility], 06/25/2017 Liz Tripathi PA-C [address] [phone] Social History Tobacco Use Types Packs/Day Years Used Date Never Assessed Sex Assigned at Date Recorded Not on file documented as of this encounter Discharge Diagnoses Diagnosis M77.12 Lateral epicondylitis, left elbow -M77.12[ICD-10-CM] documented in this encounter Discharge Disposition Disposition Code Departure Means Destination Auto Discharge Home documented in this encounter Plan of Treatment Not on filedocumented as of this encounter Visit Diagnoses Not on filedocumented in this encounter
--- OUTSIDE RECORDS SUMMARY | 2021-10-19 02:28 | XMS_ITS | Encounter Summary ---
:1975 Author Organization [facility] Address [address] [place] [address] Care Team Providers Name Role Phone Unavailable Primary Care Provider Unavailable Reason for Visit Reason Onset Date Comments Appointment Related 05/19/2017 Encounter Details Date Type Department Care Team Description 05/19/2017 Telephone [facility] Therapy, Physical Appo intment Related Rehabilitation Therapy - [address] [address] Social History Tobacco Use Types Packs/Day Years Used Date Never Assessed Sex Assigned at Date Recorded Not on file documented as of this encounter Miscellaneous Notes Telephone Encounter - Meena Jacobo - 05/19/2017 1356 EST Images from the original note were not included. [facility] - [address] [address] Telephone Intake Information for Scheduling NEW Patients for Therapy Script/referral (present in [facility]) Referring Provider: LAW BARNES Diagnosis: W/C M77.12 LEFT LAT EPI Primary Insurance: W/C If Workers' Comp: Meena Jacobo 05/19/2017 Label: Michael Barr : 1975 LAW RENE W/C documented in this encounter Plan of Treatment Not on filedocumented as of this encounter Visit Diagnoses Not on filedocumented in this encounter
--- OUTSIDE RECORDS SUMMARY | 2021-10-19 02:28 | XMS_ITS | Encounter Summary ---
:1975 Author Organization [facility] Address [address] [place] [address] Care Team Providers Name Role Phone Unavailable Primary Care Provider Unavailable Reason for Referral Radiology Services (Routine) - New Request Specialty Diagnoses / Procedures Referred By Contact Refer red To Contact Diagnoses Left elbow pain Nathaniel Hickey MD Procedures ELBOW 3 OR MORE VIEWS [address] [place] [address] Referral ID Status Reason Start Date Expiration Date Visits V isits Requested Authorized [id number] New Request 06/11/2017 1 1 Reason for Visit Reason Comments Elbow Pain Encounter Details Date Type Department Care Team Description 06/11/2017 Orders Only [facility] Nathaniel Hickey Left elbo w pain Sports Medicine MD Lacy (Primary Dx) Program - [place] [address] [place], [facility] [phone] Social History Tobacco Use Types Packs/Day Years Used Date Never Assessed Sex Assigned at Date Recorded Not on file documented as of this encounter Plan of Treatment Not on filedocumented as of this encounter Procedures Procedure Name Priority Date/Time Associated Diagnosis Comme nts ELBOW 3 OR MORE Routine 06/13/2017 9:30 EST Left elbow pain Re sults for this VIEWS procedure are i n the results section. documented in this encounter Results ELBOW 3 OR MORE VIEWS (06/13/2017 9:30 EST) Anatomical Region Laterality Modality Other Specimen Narrative [facility] - 06/13/2017 9:48 EST ELBOW 3 OR MORE VIEWS ??06/13/2017 9:30 AM Clinical History/Comments: M25.522-Pain in left [id number]; left elbow pain COMPARISON: None available. FINDINGS: Left elbow AP lateral and oblique views are obtained. No acute fracture, dislocation or left elbow join t effusion is demonstrated. Minimal degenerative changes are visuali zed in the elbow joint. Procedure Note Steve Dubon MD - 06/13/2017 ELBOW 3 OR MORE VIEWS 06/13/2017 9:30 AM Clinical History/Comments: M25.522-Pain in left [id number]; left elbow pain COMPARISON: None available. FINDINGS: Left elbow AP lateral and oblique views are obtained. No acute fracture, dislocation or left elbow join t effusion is demonstrated. Minimal degenerative changes are visuali zed in the elbow joint. Performing Organization Address City/State/ZIP Code Phon e Number [facility] RADIOLOGY [place] documented in this encounter Visit Diagnoses Diagnosis Left elbow pain - Primary Pain in joint, upper arm documented in this encounter
--- OUTSIDE RECORDS SUMMARY | 2021-10-19 02:28 | XMS_ITS | Encounter Summary ---
:1975 Author Organization [facility] Address [address] [place] [address] Care Team Providers Name Role Phone Unavailable Primary Care Provider Unavailable Reason for Visit Reason Onset Date Comments Other 05/08/2017 Encounter Details Date Type Department Care Team Description 05/08/2017 Telephone [facility] Hand & Rolando Mendoza, Other Upper Extremity Program - PA-C Liz [address] [facility] [place], [place] [phone] (Wo rk) Social History Tobacco Use Types Packs/Day Years Used Date Never Assessed Sex Assigned at Date Recorded Not on file documented as of this encounter Miscellaneous Notes Telephone Encounter - Wesley Flowers - 05/08/2017 1439 EST Faxed office notes to [facility] serviceperson as requested. Wesley Flowers 05/08/17 documented in this encounter Plan of Treatment Not on filedocumented as of this encounter Visit Diagnoses Not on filedocumented in this encounter
--- OUTSIDE RECORDS SUMMARY | 2021-10-19 02:28 | XMS_ITS | Encounter Summary ---
:1975 Author Organization [facility] Address [address] [place] [address] Care Team Providers Name Role Phone Unavailable Primary Care Provider Unavailable Reason for Referral Prior Authorization (Routine) - Specialty Report Received Specialty Diagnoses / Procedures Referred By Contact Refer red To Contact Diagnoses Left elbow pain Nathaniel Hickey MD [address] [place] [phone] Referral ID Status Reason Start Expiration Visits Visits Date Date Requested Authorized [id number] Specialty Specialty 06/13/2017 1 1 Report Services Received Required Question Answer Reason for Request: L LATERAL ELBOW PRP INJ Comments The purpose of this consult request is t o inform the scheduling staff that a procedure/surgery needs to be prior-auth orized before it is scheduled. W/C PRP Encounter Details Date Type Department Care Team Description 06/13/2017 Orders Only [facility] Nathaniel Hickey elbo w pain Sports Medicine MD Lacy (Primary Dx) Program - [address] Geremias Hubbard, [facility] [phone] Social History Tobacco Use Types Packs/Day Years Used Date Never Assessed Sex Assigned at Date Recorded Not on file documented as of this encounter Plan of Treatment Scheduled Referrals Name Type Priority Associated Order Schedule Diagnoses AMB CONS/FOLLOW UP Outpatient Referral Routine Left elbow pain Ordered: PROCEDURE PRIOR 06/13/2017 AUTHORIZATION REQUEST documented as of this encounter Visit Diagnoses Diagnosis Left elbow pain - Primary Pain in joint, upper arm documented in this encounter
--- OUTSIDE RECORDS SUMMARY | 2021-10-19 02:28 | XMS_ITS | Encounter Summary ---
:1975 Author Organization [facility] Address [address] [place] [address] Care Team Providers Name Role Phone Unavailable Primary Care Provider Unavailable Encounter Details Date Type Department Care Team Description 09/07/2003 Hospital Encounter [facility] Emergency, Emergency Department - [place], Main [employer] [address] [place], [place] [phone] Social History Tobacco Use Types Packs/Day Years Used Date Never Assessed Sex Assigned at Date Recorded Not on file documented as of this encounter Discharge Disposition Disposition Code Departure Means Destination Home or Self Care documented in this encounter Plan of Treatment Not on filedocumented as of this encounter Visit Diagnoses Not on filedocumented in this encounter
[2021-10-19 16:19] LABS: TSH (W/Ref FT4) 2.36 uIU/mL (0.36-3.74)
[2021-10-22 12:49] LABS: IgA 208 mg/dL (85-499); Interpretation (See Note); Tissue Transglutaminase IgA <1.2 U/mL (<4.0)
== END 2021-10-19 02:26 | disposition home or self-care (01) ==
LOC: LBO 02:25
PROVIDERS: PCP Nurse Practitioner Family; Visit Provider Surgery
DX: R19.8 Other specified symptoms and signs involving the digestive system and abdomen (principal); R15.9 Full incontinence of feces; Z72.0 Tobacco use
CPT/HCPCS: 36415; 82784; 83516; 84443

== ENCOUNTER 2021-12-26 16:45 | Outpatient (REF) | payer SELFPAY ==
--- OUTSIDE RECORDS SUMMARY | 2021-12-26 16:48 | XMS_ITS | Encounter Summary ---
:1975 Author Organization [facility] Address [address] [place] [address] Care Team Providers Name Role Phone Unavailable Primary Care Provider Unavailable Reason for Visit Reason Onset Date Comments Appointment Related 12/04/2018 cancel Encounter Details Date Type Department Care Team Description 12/04/2018 Telephone [facility] Nathaniel Hickey nt Related Sports Medicine Program MD Lacy (cancel) - [facility] [employer] [address] [facility] [address] Geremias Hubbard, [place], [place] [address] [place] [phone] Social History Tobacco Use Types Packs/Day [...] appointment scheduled December 08 at 9:00am at [facility] with Dr Nathaniel Hickey. Patient has a conflict in schedule. Patient would like a call back to reschedule. [phone]. documented in this encounter Plan of Treatment Not on filedocumented as of this encounter Visit Diagnoses Not on filedocumented in this encounter
--- OUTSIDE RECORDS SUMMARY | 2021-12-26 16:48 | XMS_ITS | Encounter Summary ---
:1975 Author Organization [facility] Address [address] [place] [address] Care Team Providers Name Role Phone Unavailable Primary Care Provider Unavailable Reason for Visit Reason Comments Elbow Pain LT LATERAL ELBOW DOI 2.9.16 NO DOS W/C Encounter Details Date Type Department Care Team Description 10/02/2018 Office Visit [facility] Nathaniel Hickey Left late [facility] Sports Medicine MD Lacy epicondylitis (Primary Program - Liz [address] Dx) [address] [place], [place] [facility] [address] [phone] Social History Tobacco Use Types Packs/Day Years [...]
--- OUTSIDE RECORDS SUMMARY | 2021-12-26 16:48 | XMS_ITS | Encounter Summary ---
:[address] [facility] Address [address] [place] [address] Care Team Providers Name Role Phone Unavailable Primary Care Provider Unavailable Reason for Visit Reason Comments Elbow Pain Encounter Details Date Type Department Care Team Description 08/13/2017 Telephone [facility] Nathaniel Ovalle MD Elbow Pain Medicine Program - ille [address] [place], [place] [phone] (Wo rk) Social [...]
--- OUTSIDE RECORDS SUMMARY | 2021-12-26 16:48 | XMS_ITS | Encounter Summary ---
:1975 Author Organization [facility] Address [address] [place] [address] Care Team Providers Name Role Phone Sindi Montgomery PAVEL Primary Care Provider Encounter Details Date Type Department Care Team Description 10/20/2021 [facility] Outr Resulting Lab, Pathology & Laboratory Provider [facility] [address] [place] [address] Social History Tobacco Use Types Packs/Day Years [...] Name Priority Date/Time Associated Diagnosis Comme nts CELIAC DISEASE Routine 10/19/2021 15:28 Results f or this PANEL EDT procedure are i n the results section. documented in this encounter Results CELIAC DISEASE PANEL (10/19/2021 15:28 EDT) Tissue <1.2 <4.0 U/mL [facility] Transglutaminase Comment: CENTER Antibody IGA A negative result may be due to IgA deficiency and does not rule out celiac disease. LABORATORY SERVICES ? Negative: ??<4.0 U/mL ? Weak Positive: ??4.0 - 10.0 U/mL ? Positive: ??>10.0 U/mL Results were obtained with kirk levy Domee QUANTA Lite R h-tTG IgA JOSE MANUEL assay on the Hotsw[employer] DSX. IgA 208 85 - 499 [facility] mg/dL CENTER LABORATORY SERVICES Celiac Disease Negative Serology. [facility] Interpretation Celiac disease CENTER unlikely. LABORATORY Approximately 10% of SERVICES patients with celiac disease are seronegative. Patients who are already adhering to a gluten-free diet may also be seronegative. If celiac disease is highly clinically suspected, referral to gastroenterology for additional evaluation is recommended. Specimen Blood - Venous blood (substance) Performing Organization Address City/State/ZIP Code Phon e Number [facility] [address] [place] [address] SERVICES documented in this encounter Visit Diagnoses Not on filedocumented in this encounter Care Teams Beveling Machine Operator Relationship Specialty Start Date End Date Sindi Montgomery FNP PCP - General 08/26/21 [address] [place], [place] [phone] documented as of this encounter
--- OUTSIDE RECORDS SUMMARY | 2021-12-26 16:48 | XMS_ITS | Encounter Summary ---
:[address] [facility] Address [address] [place] [address] Care Team Providers Name Role Phone Unavailable Primary Care Provider Unavailable Encounter Details Date Type Department Care Team Description 05/12/2020 Orders Only [facility] Mauri Ramos MD Orthopedic Surgery - [facility] [address] [facility] [address] [place], [place] [address] [address] [place], [place] [address] [phone] Social History Tobacco Use Types Packs/Day Years [...]
--- OUTSIDE RECORDS SUMMARY | 2021-12-26 16:48 | XMS_ITS | Encounter Summary ---
:[address] [facility] Address [address] [place] [address] Care Team Providers Name Role Phone Unavailable Primary Care Provider Unavailable Reason for Referral PT/OT/ST (Routine) - Authorized Specialty Diagnoses / Procedures Referred By Contact Refer red To Contact Diagnoses Left lateral epicondylitis Nathaniel Hickey MD [address] [place] [phone] Referral ID Status Reason Start Expiration Visits Visits Date Date Requested Authorized [id number] Authorized Specialty 08/07/2017 1 1 Services Required Question Answer Reason for Request: left lateral epicondylitis, PRP on 08/07/17 Return Visit to Provider: 6 weeks Comments Please see protocol. certified personal trainer services incl uded. Reason for Visit Reason Comments Elbow Pain left Prior Authorization (Routine) - Specialty Report Received Specialty Diagnoses / Procedures Referred By Contact Refer red To Contact Diagnoses Left elbow pain Nathaniel Hickey MD [address] [place] [phone] Referral ID Status Reason Start Expiration Visits Visits Date Date Requested Authorized [id number] Specialty Specialty 06/13/2017 1 1 Report Services Received Required Encounter Details Date Type Department Care Team Description 08/07/2017 Office Visit [facility] Nathaniel Hickey late [facility] Sports Medicine MD Lacy epicondylitis (Primary Program - [address] Dx) [address] [place] [address] Dr Geremias Hubbard, [facility] [address] [phone] Social History Tobacco Use Types Packs/Day Years [...] 2. Med lot number: [id number] NDC number: 8703-3060-62 3. Exp date: 12/14 Analytical Technician: Hospira I. Patient is here for an US guided injection -Bupivacaine 0.5 % 50mg/10mL 2cc 1. Med given in left elbow 2. Med lot number: [id number] ND number: [id number] 3. Exp date: 08/14 Analytical Technician: [employer] Amira Larios 08/07/17 Nathaniel Centeno MD - [...]
--- OUTSIDE RECORDS SUMMARY | 2021-12-26 16:48 | XMS_ITS | Encounter Summary ---
:1975 Author Organization [facility] Address [address] [place] [address] Care Team Providers Name Role Phone Unavailable Primary Care Provider Unavailable Reason for Visit Reason Comments Elbow Pain lt elbow Prior Authorization (Routine) - Specialty Report Received Specialty Diagnoses / Procedures Referred By Contact Refer red To Contact Orthopedic Surgery Diagnoses Left lateral epicondylitis Nathaniel Hickey, Nathaniel Hickey MD MD [address] [place] [phone] Fax: Referral ID Status Reason Start Expiration Visits Visits Date Date Requested Authorized [id number] Specialty Specialty 11/04/2017 1 1 Report Services Received Required Encounter Details Date Type Department Care Team Description 01/06/2018 Office Visit [facility] Nathaniel Hickey Left late [facility] Sports Medicine MD Lacy epicondylitis (Primary Program - [address] [facility] Dx) [address] [facility], [facility] [phone] Social History Tobacco Use Types [...] He was been doing PT at at [facility] but this was a little rough. He then went to [facility]. This has been going well. He has [...] Nathaniel Hickey M.D. 01/06/2018 16:04 Cc: Tereso Mckeon documented in this encounter Plan of Treatment Not on filedocumented as of this encounter Visit Diagnoses Diagnosis Left lateral epicondylitis - Primary Lateral epicondylitis of elbow documented in this encounter
--- OUTSIDE RECORDS SUMMARY | 2021-12-26 16:48 | XMS_ITS | Encounter Summary ---
:1975 Author Organization [facility] Address [address] [place] [address] Care Team Providers Name Role Phone Sindi Montgomery PAVEL Primary Care Provider Reason for Visit Reason Onset Date Comments Paperwork request 10/03/2021 Damper Worker's office Josy Sinha Encounter Details Date Type Department Care Team Description 10/03/2021 Telephone [facility] Mauri Ramos Paperwor k request Orthopedic Surgery - MD Tomi (Damper Worker's office Cathy Marrero Dr [facility] [employer] [facility] and Katelyn) [address] [place], [place] [address] [place] [phone] Social History Tobacco Use Types Packs/Day [...] 1623 EDT Received a letter from patient's environmental lawyer concerning getting diagnotic testing authorized that dr. Ramos previously requested. Labelled and put in workers' comp box documented in this encounter Plan of Treatment Not on filedocumented as of this encounter Visit Diagnoses Not on filedocumented in this encounter Care Teams Electronic Component Processor Relationship Specialty Start Date End Date Sindi Montgomery FNP PCP - General 08/26/21 [address] [place] [address] documented as of this encounter
--- OUTSIDE RECORDS SUMMARY | 2021-12-26 16:48 | XMS_ITS | Encounter Summary ---
:1975 Author Organization [facility] Address [address] [place] [address] Care Team Providers Name Role Phone Unavailable Primary Care Provider Unavailable Reason for Visit Reason Comments Follow-up DOI 2.2016 Work Related Injury DOI 2.2016 Encounter Details Date Type Department Care Team Description 02/07/2020 Office Visit [facility] Nathaniel Hickey late [facility] Sports Medicine MD Lacy epicondylitis (Primary Program - Liz [address] [facility] [address] Dx) [address] Geremias [place], [facility] [address] [phone] Social History Tobacco Use Types Packs/Day Years [...] issues. Has been going to PT at [facility]. Has been doing eccentrics and having [...]
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
--- OUTSIDE RECORDS SUMMARY | 2021-12-26 16:48 | XMS_ITS | Encounter Summary ---
:1975 Author Organization Address [address] [place] [address] Care Team Providers Name Role Phone Unavailable Primary Care Provider Unavailable Reason for Visit Reason Onset Date Comments Referral Request 02/17/2020 Encounter Details Date Type Department Care Team Description 02/17/2020 Telephone [facility] Sports Nathaniel Hickey, Referral Request Medicine Program - Omer santiago MD [facility] Liz [address] [place], [place] [address] [place], [place] [phone] (Wo rk) Social History Tobacco Use [...]
--- OUTSIDE RECORDS SUMMARY | 2021-12-26 16:48 | XMS_ITS | Encounter Summary ---
:1975 Author Organization [facility] Address [address] [place] [address] Care Team Providers Name Role Phone Unavailable Primary Care Provider Unavailable Reason for Referral Radiology Services (Routine/Next Available) - New Request Specialty Diagnoses / Procedures Referred By Contact Refer red To Contact Diagnoses Left elbow pain Nathaniel Hickey MD Procedures MSK US ELBOW [address] [place] [address] Referral ID Status Reason Start Date Expiration Date Visits V isits Requested Authorized [id number] New Request 08/07/2017 1 1 Encounter Details Date Type Department Care Team Description 08/07/2017 Orders Only [facility] Nathaniel Hickey Left elbo w pain Sports Medicine MD Lacy (Primary Dx) Program - [address] Geremias Hubbard, [facility] [phone] Social History Tobacco Use Types Packs/Day Years [...] Anatomical Region Laterality Modality Other Specimen Narrative [facility] - 08/07/2017 17:26 EDT Non Reportable Exam Procedure Note MANAGER ENGAGEMENT, IMAGING - 08/08/2017 Non Reportable Exam Performing Organization Address City/State/ZIP Code Phon e Number [facility] [place] documented in this encounter Visit Diagnoses Diagnosis Left elbow pain - Primary Pain in joint, upper arm documented in this encounter
--- OUTSIDE RECORDS SUMMARY | 2021-12-26 16:48 | XMS_ITS | Encounter Summary ---
:1975 Author Organization [facility] Address [address] [place] [address] Care Team Providers Name Role Phone Unavailable Primary Care Provider Unavailable Encounter Details Date Type Department Care Team Description 06/12/2017 - Hospital Encounter [facility], 06/25/2017 Liz Tripathi PA-C [address] [address] Social History Tobacco Use Types Packs/Day Years [...]
--- OUTSIDE RECORDS SUMMARY | 2021-12-26 16:48 | XMS_ITS | Encounter Summary ---
:1975 Author Organization [facility] [place] [address] Care Team Providers Name Role Phone None Primary Care Provider Unavailable Encounter Details Date Type Department Care Team Description 04/11/2017 Hospital Encounter Radiology Library at [facility] Viktor Lindquist [facility] [address] [place] [address] [place], [place] [phone] [address] Social History Tobacco Use Types Packs/Day Years [...] Address City/State/ZIP Code Phon e Number RAD [place], [place] documented in this encounter Visit Diagnoses Diagnosis Pain Generalized pain documented in this encounter Care Teams Stage Electrician Helper Relationship Specialty Start Date End Date None PCP - General 03/20/10 07/13/17 None documented as of this encounter
--- OUTSIDE RECORDS SUMMARY | 2021-12-26 16:48 | XMS_ITS | Encounter Summary ---
:1975 Author Organization [facility] Address [address] [place] [address] Care Team Providers Name Role Phone Unavailable Primary Care Provider Unavailable Encounter Details Date Type Department Care Team Description 12/13/2019 Orders Only [facility] Nathaniel Hickey Left nicole gilman pain Sports Medicine MD Lacy (Primary Dx) Program - [facility] [address] [facility] [address] [place], [facility] [address] [phone] Social History Tobacco Use Types Packs/Day Years [...]
--- OUTSIDE RECORDS SUMMARY | 2021-12-26 16:49 | XMS_ITS | Encounter Summary ---
:1975 Author Organization [facility] Address [address] [place] [address] Care Team Providers Name Role Phone Unavailable Primary Care Provider Unavailable Encounter Details Date Type Department Care Team Description 09/07/2003 Hospital Encounter [facility], Emergency Department - [place], Main [place] [address] [place], [place] [phone] Social History Tobacco Use Types Packs/Day Years [...]
--- OUTSIDE RECORDS SUMMARY | 2021-12-26 16:49 | XMS_ITS | Encounter Summary ---
:1975 Author Organization [facility] Address [address] [place] [address] Care Team Providers Name Role Phone Unavailable Primary Care Provider Unavailable Reason for Referral Prior Authorization (Routine) - Specialty Report Received Specialty Diagnoses / Procedures Referred By Contact Refer red To Contact Diagnoses Left elbow pain Nathaniel Hickey MD [address] [place] [phone] Referral ID Status Reason Start Expiration Visits Visits Date Date Requested Authorized [id number] Specialty Specialty 06/13/2017 1 1 Report Services Received Required Question Answer Reason for Request: L LATERAL ELBOW PRP INJ Comments The purpose of this consult request is t o inform the scheduling staff that a procedure/surgery needs to be prior-auth orized before it is scheduled. W/C PRP Encounter Details Date Type Department Care Team Description 06/13/2017 Orders Only [facility] Nathaniel Hickey elbo w pain Sports Medicine MD Lacy (Primary Dx) Program - [address] Geremias Hubbard, [facility] [address] [phone] Social History Tobacco Use Types Packs/Day Years [...]
--- OUTSIDE RECORDS SUMMARY | 2021-12-26 16:49 | XMS_ITS | Encounter Summary ---
:1975 Author Organization [facility] Address [address] [place] [address] Care Team Providers Name Role Phone Tereso Lam MD Primary Care Provider Unavailable Encounter Details Date Type Department Care Team Description 04/29/2017 Results Only [facility]- Unknown, PRISM Provider, Social History Tobacco Use Types Packs/Day Years Used Date Never Assessed Sex Assigned at Date Recorded Not on file documented as of this encounter Plan of Treatment Pending Results Name Type Priority Associated Diagnoses Date/Ti me OUTSIDE IMAGES - MR [facility] 05/2017 15:14 EST documented as of this encounter Visit Diagnoses Not on filedocumented in this encounter Care Teams Loss Prevention Research Engineer Relationship Specialty Start Date End Date Tereso Lam MD PCP - General 03/07/15 04/29/17 documented as of this encounter
--- OUTSIDE RECORDS SUMMARY | 2021-12-26 16:49 | XMS_ITS | Encounter Summary ---
:1975 Author Organization [facility] Address [address] [place] [address] Care Team Providers Name Role Phone Unavailable Primary Care Provider Unavailable Reason for Visit Reason Onset Date Comments Returning Call 05/20/2017 Encounter Details Date Type Department Care Team Description 05/20/2017 Telephone [facility] Fernando & Rolando Mendoza, Returning Call Upper Extremity Program - RANDI Hill [address] [place], [place] [phone] (Wo rk) Social [...]
--- OUTSIDE RECORDS SUMMARY | 2021-12-26 16:49 | XMS_ITS | Encounter Summary ---
:1975 Author Organization [facility] Address [address] [place] [address] Care Team Providers Name Role Phone Unavailable Primary Care Provider Unavailable Reason for Visit Reason Onset Date Comments Appointment Related 05/19/2017 Encounter Details Date Type Department Care Team Description 05/19/2017 Telephone [facility] Therapy, Physical Appo intment Related Rehabilitation Therapy - [address] [address] Social History Tobacco Use Types Packs/Day Years Used Date Never Assessed Sex Assigned at Date Recorded Not on file documented as of this encounter Miscellaneous Notes Telephone Encounter - Meena Jacobo - 05/19/2017 1356 EST Images from the original note were not included. [facility] - [address] [address] Telephone Intake Information for Scheduling NEW Patients [...]
--- OUTSIDE RECORDS SUMMARY | 2021-12-26 16:49 | XMS_ITS | Encounter Summary ---
:1975 Author Organization [facility] Address [address] [place] [address] Care Team Providers Name Role Phone Unavailable Primary Care Provider Unavailable Reason for Visit Reason Onset Date Comments Other 05/08/2017 Encounter Details Date Type Department Care Team Description 05/08/2017 Telephone [facility] Hand & Rolando Mendoza, Other Upper Extremity Program - PA-C Liz [address] [facility] [place], [place] [phone] (Wo rk) Social History Tobacco Use Types Packs/Day Years Used Date Never Assessed Sex Assigned at Date Recorded Not on file documented as of this encounter Miscellaneous Notes Telephone Encounter - Wesley Flowers - 05/08/2017 1439 EST Faxed office notes to Michael's director loss prevention as requested. Wesley Flowers 05/08/17 documented in this encounter Plan of Treatment Not on filedocumented as of this encounter Visit Diagnoses Not on filedocumented in this encounter
--- OUTSIDE RECORDS SUMMARY | 2021-12-26 16:49 | XMS_ITS | Encounter Summary ---
:1975 Author Organization [facility] Address [address] [place] [address] Care Team Providers Name Role Phone Unavailable Primary Care Provider Unavailable Reason for Visit Reason Comments Elbow Pain left Consult (Routine) - Specialty Report Received Specialty Diagnoses / Procedures Referred By Contact Refer red To Contact Orthopedic Surgery Diagnoses Left lateral epicondylitis Esperanza Mendoza, Deuce Payne, PA-C [address] [place] [phone] Fax: Referral ID Status Reason Start Expiration Visits Visits Date Date Requested Authorized [id number] Specialty Specialty 05/08/2017 1 1 Report Services Received Required Encounter Details Date Type Department Care Team Description 06/13/2017 Office Visit [facility] Nathaniel Hickey Left late [facility] Sports Medicine MD Lacy epicondylitis (Primary Program - [address] Dx) [address] [place] [id number] Social History Tobacco Use Types [...] - - Weight 79.4 kg (175 lb) 06/13/2017 0944 EST Height 182.9 cm (6') 06/13/2017 0944 EST Body Mass Index 23.73 06/13/2017 0944 EST documented in this encounter Discharge Diagnoses Diagnosis M25.522 Pain in left elbow-M25.522[ICD-1 0-CM] documented in this encounter Discharge Disposition Disposition Code Departure Means Destination Auto Discharge documented in this encounter Progress Notes Nathaniel Hickey MD - 06/13/2017 8516 EST Chief Complaint Patient presents with ??? Elbow Pain left Michael Barr is seen in consultation at the request of CAMERON Jay for evaluationof left elbow pain. SUBJECTIVE: Michael Barr is a 41 y.o. right hand dominant male who presents to the office with a 2 year history of insidious onset left lateral elbow pain. 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 He has been followed by CAMERON Jay. He has had two corticosteroid injections that helpedquite a bit. The first helped for about seven months. He had a second injection that also helped forabout six months or so. He has gone to PT in [place]. Partial benefit. This is a workers compensation injury. DOI 06/06/2015. He is working full duty. No restrictions. He does try to avoid using the left arm to lift. He is scheduled to meet with a surgeon in [facility]. 2 out of 10 pain. PMH: neg PSH: neg No current outpatient prescriptions on file. No current facility-administered medications for this visit. Allergies Allergen Reactions ??? 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 OBJECTIVE: Ht 182.9 cm (72) Wt 79.4 kg (175 lb) BMI 23.73 kg/m2 General: awake, alert, NAD, pleasant EENT: extraocular motion grossly intact Pulmonary: normal respirations, non-labored breathing Psych: normal affect, thoughts are logical and sequential Examination of the left elbow On observation, there is no effusion. There is no ecchymosis over flexor pronator region of forearm.No erythema. On palpation, there is moderate tenderness over the lateral epicondyle. There is [...] normal study. ASSESSMENT: Left elbow lateral epicondylosis. Recalcitrant to conservative treatments. PLAN: We discussed the diagnosis and multi-faceted treatment plan. Ice massage and stretching. Home exercises given. OTC meds as needed. Activity modification with avoidance of repetitive activity and overuse. We discussed ultrasound guided injection procedures including percutaneous needle tenotomy and platelet rich plasma. Risks and benefits were reviewed at length. It was decided today to schedule him for a left lateral elbow PRP. He is going to meet with a surgeon as well. The patient verbalized understanding of the above and agreed with this plan. All of his questions were answered to his satisfaction today. 40 minutes of face to face time was spent with the patient, 25 minutes were spent on counseling and coordination of care of the patient's left elbow pain. I would like to thank CAMERON Jay for this kind referral. I appreciate the opportunity toassist in Michael Barr's care. Nathaniel Hickey M.D. 06/13/2017 12:52 Cc: Tereso Mckeon documented in this encounter Plan of Treatment Not on filedocumented as of this encounter Visit Diagnoses Diagnosis Left lateral epicondylitis - Primary Lateral epicondylitis of elbow documented in this encounter
[2021-12-26 19:36] LABS: Abs Immature Grans 0.01 10^3/uL (0.0-0.06); Absolute Basophil Count 0.05 10^3/uL (0.0-0.2); Absolute Eosinophil Count 0.24 10^3/uL (0.0-0.7); Absolute Lymphocyte Count 2.26 10^3/uL (1.2-3.4); Absolute Monocyte Count 0.83 10^3/uL (0.1-0.8); Absolute Neutrophil Count 4.64 10^3/uL (1.2-6.7); Basophils % 0.6; HCT 45.6 % (40.0-50.0); HGB 15.9 g/dL (13.5-17.5); Immature Grans % 0.1; Lymphocytes % 28.1; MCH 33.5 pg (27.0-33.0); MCHC 34.9 % (32.0-36.0); MCV 96 fL (80-95); MPV 10.6 fL (8.0-11.0); Monocytes % 10.3; Neutrophils % 57.9; Platelet Count 265 10^3/uL (130-400); RBC 4.74 10^6/uL (4.36-5.78); RDW-SD 42.9 fL; WBC 8.03 10^3/uL (4.4-10.8)
[2021-12-26 19:43] LABS: ALT 14 U/L (16-63); AST 21 U/L (15-37); Albumin 4.4 g/dL (3.4-5.0); Alkaline Phosphatase 81 U/L (46-116); Anion Gap 5.6 mmol/L (3-11); BUN 12 mg/dL (7-18); Bilirubin, Total 0.7 mg/dL (0.2-1.0); CO2 29.4 mmol/L (21.0-32.0); CREATININE 1.1 mg/dL (0.70-1.30); Chloride 106 mmol/L (98-107); Estimated GFR 84.37 (mL/min/1.73m2); Glucose 95 mg/dL (74-106); Sodium 141 mmol/L (136-145); Total Protein 7.6 g/dL (6.4-8.2)
== END 2021-12-26 16:46 | disposition home or self-care (01) ==
LOC: NCHCN 16:45
PROVIDERS: PCP Nurse Practitioner Family; Visit Provider Family Medicine
DX: R60.0 Localized edema (principal)
CPT/HCPCS: 80053; 85025

== ENCOUNTER 2022-09-11 13:16 | Outpatient (REF) | payer SELFPAY ==
[2022-09-11 16:39] LABS: ALT 16 U/L (16-63); AST 11 U/L (15-37); Albumin 4.2 g/dL (3.4-5.0); Alkaline Phosphatase 82 U/L (46-116); Anion Gap 7.7 mmol/L (3-11); BUN 20 mg/dL (7-18); Bilirubin, Total 0.3 mg/dL (0.2-1.0); CO2 29.3 mmol/L (21.0-32.0); CREATININE 0.9 mg/dL (0.70-1.30); Calcium 9.3 mg/dL (8.5-10.1); Calculated LDL 120 mg/dL (<100); Chloride 106 mmol/L (98-107); Cholesterol 170 mg/dL (<200); Estimated GFR 107.33 (mL/min/1.73m2); Glucose 89 mg/dL (74-106); HDL Cholesterol 33 mg/dL (40-60); Potassium 4.7 mmol/L (3.5-5.1); Sodium 143 mmol/L (136-145); Total Protein 6.9 g/dL (6.4-8.2); Triglyceride 85 mg/dL (<150)
== END 2022-09-11 13:17 | disposition home or self-care (01) ==
LOC: NCHCN 13:16
PROVIDERS: PCP Nurse Practitioner Family; Visit Provider Nurse Practitioner Family
DX: Z00.00 Encounter for general adult medical examination without abnormal findings (principal); Z13.220 Encounter for screening for lipoid disorders; Z13.228 Encounter for screening for other metabolic disorders
CPT/HCPCS: 80053; 80061

== ENCOUNTER 2022-12-04 16:32 | Emergency (ER) | payer SELFPAY ==
[2022-12-04 16:34] VITALS: BP 133/85; PULSE 95; RESP 18; O2SAT 96
--- NOTE | 2022-12-04 16:43 | ED.GENADUL_ITS ---
Discharge Plan Disposition Patient Disposition: Home Condition: Good Discharge Details Clinical Impression: Laceration of hand, left Primary Care Provider: Sindi Montgomery ED Provider: Linda Carmona Home Meds and New Rx's Prescriptions: No Action NO DAILY MEDICATIONS Discharge Instructions Instructions: Laceration (ED) Additional Instructions: Stitches out in 7 days- urgent care, primary care, or in the ED Seek medical attention if there is a thick green or white discharge from your wound, you have severe pain, numbness in your hand or fingers, or are unable to move your hand normally. Referrals: Sindi Montgomery [Primary Care Provider] - Medical Decision Making 47yo previously healthy male presenting with shallow linear laceration to dorsum of left hand after chain saw injury. Vital signs and physical exam reassuring, wound thoroughly irrigated, no foreign bodies and no involvement of deeper st ructures. Would not get XR given very shallow lac and full visualization. Tetanus just under 5 years old, will not update today. Laceration repaired; discharged home. Discharged home; discharge instructions including return precautions were reviewed with patient who verbalized understanding. All questions were answered and they are in full agreement with the plan. HPI General Mode of arrival: ambulatory . Date/Time Provider Initiated Documentation: 12/04/22 16:36 . Information obtained by: patient . HPI Narrative: 47yo previously healthy male presenting with left hand laceration from chainsaw. No numbness, tingling, or weakness to hand or digits. No other injuries. Last tetanus December 16, 2017. In his usual state of health prior to this event. Related Data Home Medications Medication Instructions Recorded Confirmed No Daily Medications 02/11/13 09/20/21 Allergies Allergy/AdvReac Type Severity Reaction Status Date / Time Penicillins Allergy Mild BLISTERS Unverified 12/04/22 16:37 HANDS azithromycin AdvReac Severe DEPRESSION/ Unverified 12/04/22 16:37 ANXIETY venlafaxine AdvReac Severe None noted Verified 12/04/22 16:37 on referral sertraline AdvReac Intermediate Erectile Unverified 12/04/22 16:37 dysfunction General Stated Complaint: Laceration MOON: 4 Review of Systems Narrative: see HPI PFSH All Active Problems (Updated 12/04/22 @ 17:13 by Linda Carmona MD) Laceration of hand, left (Acute) Hyperplastic colon polyp (Acute ~09/21/21) Chondrocalcinosis (Acute) Current tobacco use (Acute) Rectal discharge (Acute) Irregular bowel habits (Acute) Per referral has noted for 15 years Fecal incontinence (Acute) Medical History (Updated 12/04/22 @ 17:13 by Linda Carmona MD) Bilateral low back pain without sciatica (06/23/15) Cataract Constipation by delayed colonic transit (12/08/15) Contusion of hip Dysthymia (10/13/15) IBS (irritable bowel syndrome) Left lateral epicondylitis (04/01/16) Trauma left hip Surgical History (Updated 10/17/21 @ 13:54 by Andra Tracey RN) History of colonoscopy (~09/21/21) History of knee surgery Family History Mother , 86 No problems noted. Social History (Updated 10/19/18 @ 10:05 by Tai Gastelum) Smoking/Tobacco Use Status: Current every day Tobacco Type: cigarettes Quit status: considering quitting Smoking risk assessment performed?: Yes Alcohol Intake: current Alcohol Intake frequency: holidays/special occasions only Alcohol type: hard liquor Drug use: Never Substance use type: does not use Caregiver/Support person: No Household members: none Communication Needs: Corrective Lenses Pets and animals: Yes Pets and animals: dog(s) Sexually active: No Do you think of yourself as: straight/heterosexual Current gender identity: male What is your relationship status?: never How often do you talk on the phone with friends or family?: decline to answer How often do you get together with friends or relatives?: decline to answer How often do you attend mormon or rastafari services?: decline to answer Do you belong to any clubs or organized social groups?: no Panel score (0-1 are the most socially isolated patients): 0 What type of physical activity do you participate in: none Jodee/Christianity: Quaker Special jodee needs: No Seatbelt use: never Drive intox or ride w/intox hack driver: No Do you feel safe at home: Yes Do you feel safe in your relationship?: Yes Exam Narrative Exam Narrative: General: Alert, well appearing, well nourished, in no acute distress. Head: Normocephalic, atraumatic Neck: Trachea midline, Neck supple. Resp: No respiratory distress. Extremities: No deformities. No peripheral edema. Left hand with shallow 2.5cm linear laceration to central dorsal surface, hemostatic. No involvement of tendons or deeper structures. Strength and sensation intact throughout left hand including all digits. Neurologic: GCS 15. Moves all extremities freely against gravity. Course Vital Signs Vital signs: Vital Signs Pulse 95 H 12/04/22 16:34 Respiratory Rate 18 12/04/22 16:34 Blood Pressure 133/85 12/04/22 16:34 Pulse Oximetry 96 12/04/22 16:34 Pulse 95 H 12/04/22 16:34 Respiratory Rate 18 12/04/22 16:34 Blood Pressure 133/85 12/04/22 16:34 Blood Pressure Position Sitting 12/04/22 16:34 Pulse Oximetry 96 12/04/22 16:34 Oxygen Delivery Method Room Air 12/04/22 16:34 Oxygen Flow Rate 0 12/04/22 16:34 Pain Level 1 12/04/22 16:34 Procedures Laceration Laceration 1: Site: hand Side (If applicable): left Size (cm): 2.5 Description: linear Depth: simple, single layer Local Anesthetic: Lidocaine 1% Amount of anesthesia used (mL): 1 Pre-repair: wound explored, irrigated extensively and deep structures intact Skin layer closed with: nylon Size (cm): 5-0 Number of sutures: 5 Technique: simple, interrupted
== END 2022-12-04 18:30 | disposition home or self-care (01) ==
PROVIDERS: Emergency Provider Student in an Organized Health Care Education/Training Program; PCP Nurse Practitioner Family
DX: S61.412A Laceration without foreign body of left hand, initial encounter (principal); W29.3XXA Contact with powered garden and outdoor hand tools and machinery, initial encounter
CPT/HCPCS: 12001

== ENCOUNTER 2024-04-29 21:55 | Outpatient (REF) | payer SELFPAY ==
--- OUTSIDE RECORDS SUMMARY | 2024-04-29 21:56 | XMS_ITS | Data Portability ---
Author Organization [facility] Address [address] [place] [address] Assessment No assessment recorded. Plan of Treatment Reminders Order Date Submit Date Provider Last Modified By Organization Details Last Modified Time Details Appointments Office Visit 40 2024 11:50A M LEFTY MONTGOMERY, Not available Not available Not available Lab CBC 2024 025 [facility] (Registration ), [address] [place] [address] [place], [address], 04/29/2024 13:10:46 CMP, serum or plasma 2024 025 [facility] (Registration ), [address] [place] [address] [place], [address], 04/29/2024 13:10:46 lipids, total, serum 2024 025 [facility] (Registration ), [address] [place] [address] [place], [address], 04/29/2024 13:10:46 Referral None recorded. Procedures None recorded. Surgeries None recorded. Imaging US, chest wall - URGENT: Patient has a soft tissue mass below the right breast. Has been present since 4. It is not painful, there is no known injury or microtrau ma. Call [address] [facility], [address], [place], [address], 04/29/2024 13:15:29 Medication Orders terbinafi ne HCl 250 mg tablet 2023 024 [facility], [address] [place], [address], 04/29/2024 11:41:08 ketoconaz ole 2 % topical cream 2023 024 [facility], [address] [place], [address], 04/29/2024 11:40:53 benzoyl peroxide 5 % topical cleanser 2024 025 [email or web address], [address] [place], [address], 04/29/2024 12:33:39 Patient TargetsNo targets recorded. Patient InstructionsNo instructions recorded. Reason for Referral None Reported. Results Created Date Observation Date Name Description Value Unit Range Abnormal Flag Note LastModifiedBy Organization Detail LastModifiedTime 01/11/20 24 06/26/2020 XR, knee No observ ation record ed. [email or web address] Not Available 01/10 22:53:43 01/11/2001/28/2021 CT, pelvi s No observ ation record ed. [email or web address] Not Available 01/10 22:53:48 01/11/2001/28/2021 CT, pelvi s No observ ation record ed. [email or web address] Not Available 01/10 22:53:49 Result Notes None recorded. Problems Name Problem SNOMED Code Status Onset Date Resolution Date Notes Provider Name and Address Organization Details Recorded Time Mass of soft tissue of right upper limb 74700501578 540872 Active [address], [place], [address] , [facility]. 12:17:27 Mass of soft tissue 371618220 Active [address], [place], [address] , [facility] 5 12:17:42 Agatha arce 599222422 Active [address], [facility] [address] [facility] 5 12:19:48 Nightmar es 383454716 Active [address], [facility] [address] , [facility] 5 16:30:55 Muscle twitch 60908485 Active [address], [facility] [address] [facility] 5 16:33:03 Dysthymi a 03250654 Active 2020 Problem Code: F34.1; Problem Code Type: ICD-10; Not Available [facility] 3 05:46:13 Low back pain 980958073 Active 2020 Problem Code: M54.5; Problem Code Type: ICD-10; Not Available [facility] 3 05:46:14 Lateral epicondy litis of left humerus 30200326474 9100 Active 2020 Problem Code: M77.12; Problem Code Type: ICD-10; Not Available [facility] 3 05:46:14 Cataract 786030075 Active 2020 Problem Code: H26.9; Problem Code Type: ICD-10; Not Available [facility] 3 05:46:14 Pain of right knee joint 40783452890 4100 Active 2020 Problem Code: M25.561; Problem Code Type: ICD-10; Not Available [facility] 3 05:46:14 Chondroc alcinosi s 451872937 Active 2020 Problem Code: M11.20; Problem Code Type: ICD-10; Not Available [facility] 3 05:46:14 Chest pain 53843741 Completed 202004/01/2021 Problem Code: R07.89; Problem Code Type: ICD-10; Not Available [facility] 3 05:46:14 Digestiv e system finding 798566853 Active 202108/31/19 22 - Comments only - 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 He [facility] We agree to move forward with a diagnost ic colonosc opy as well as a referal to Dr. Patel at gastro terology . I do think it may be worth trying a bulking agent like metamuci l but Michael is not interest ed at this time. Problem Code: R19.8; Problem Code Type: ICD-10; Not Available [facility] 3 05:46:14 Localize d edema 549583526 Active 2021 Problem Code: R60.0; Problem Code Type: ICD-10; Not Available [facility] 3 05:46:14 Tinea cruris 846695619 Active 2021 Problem Code: B35.6; Problem Code Type: ICD-10; Not Available [facility] 3 05:46:14 Adult health examinat ion Active 202209/12/19 23 - Comments only - Lefty Montgomery PROOF COIN COLLECTOR - Lipids and CMP at today's visit. Problem Code: Z00.00; Problem Code Type: ICD-10; Not Available [facility] 3 05:46:14 Senile hyperker atosis 456841829 Active 202209/12/19 23 - Comments only - Lefty Montgomery PROOF COIN COLLECTOR - Lesion on right sikh is most consiste n with seborrhe ic keratosi s. We discusse d warnings signs that would make FU necessar y. Problem Code: L82.1; Problem Code Type: ICD-10; Not Available [facility] 3 05:46:15 Hyperlip idemia 52202891 Active 2022 Problem Code: E78.5; Problem Code Type: ICD-10; Not Available [facility] 3 05:46:15 Acute pharyngi tis 819820479 Completed 202201/01/2023 Problem Code: J02.9; Problem Code Type: ICD-10; Not Available [facility] 3 05:46:15 Anesthes ia of skin 676532221 Completed 202008/30/2021 Problem Code: R20.0; Problem Code Type: ICD-10; Not Available [facility] 3 05:46:15 Constipa tion 92104720 Completed 202008/30/2021 Problem Code: K59.00; Problem Code Type: ICD-10; Not Available [facility] 3 05:46:15 Counseli ng Completed 202008/30/2021 Problem Code: Z71.89; Problem Code Type: ICD-10; Not Available [facility] 3 05:46:15 Hearing loss 71487760 Active 2023 [address], [facility] [address] , [facility] 11:08:43 Onychomy cosis due to dermatop hyte 411176325 Active [address], [facility] [address] , [facility] 4 13:49:34 Tinea pedis 9650148 Active [address], [facility] [address] , [facility] 15:19:40 Problem Notes None recorded. Procedures Surgical History None recorded. Imaging Results Imaging Date Name Status LastModified by Organiz ation Details LastModified Time 06/26/2020 XR, knee completed Information no t available 01/11/2024 22:53:43 01/28/2021 CT, pelvis completed Information no t available 01/11/2024 22:53:48 01/28/2021 CT, pelvis completed Information no t available 01/11/2024 22:53:49 Procedure Notes None recorded. Medical Equipment None Reported. Allergies Allergen ID Allergen Name Allergen Category Reaction Reaction Severity Criticality Documentation Date Start Date Code Code System Note Provider Name and Address Organization Details Recorded Time 70009 azithromy elsa medicatio n Not available Not available Not available 03/07/20232020 80278 RxNorm Not Available [facility] 3 16:22:03 28081 Medicinal product containin g penicilli n and acting as antibacte rial agent (product) medicatio n Not available Not available Not available 03/07/20232020 96646 05 SNOMED Aller gyCod e: '8340 61'; Aller gyNam e: 'PENI CILLI N'; Aller gyCon ceptT ype: 'RX Norm' ; Not Available [facility] 3 16:22:04 65026 sertralin e hydrochlo ride medicatio n Not available Not available Not available 03/07/20232020 90602 7 RxNorm Not Available [facility] 3 16:22:04 Medications Name Sig Start Date Stop Date Status Note LastModified by Organization Details LastModified Time terbinafine HCl 250 mg tablet TAKE ONE TABLET BY MOUTH EVERY MORNING 04/29 completed Not Available Not Available Not Available benzoyl peroxide 5 % topical cleanser Use as a wash once daily. 2024 active Not Available Not Available Not Avai lable ketoconazol e 2 % topical cream APPLY TO THE AFFECTED AREA(S) TOPICALLY ONCE DAILY 04/29 completed Not Available Not Available Not Available oxycodone 5 mg tablet Take 1 tablet by mouth twice a day as needed for pain 02/16 completed Not Available Not Available Not Available colchicine 0.6 mg capsule Take 1 capsule by mouth twice a day 08/30 completed Not Available Not Available Not Available Vitals Date Recorded Body height Body temperature Oxygen saturation Oxygen saturation in Arterial blood by Pulse oximetry Heart rate Body mass index (BMI) Body weight Systolic blood pressure Diastolic blood pressure Provider Name and Address Organization Details Last Updated DateTime 4 179.07 cm 97 [degF] 97 % 97 % 75 /min 26.5 kg/m2 98826.9 3 g 110 mm[Hg] 82 mm[Hg] Mandy Colin RN [facility] 4 08:36:34 Date Recorded Body height Body mass index (BMI) Body weight Body temperature Heart rate Oxygen saturation Oxygen saturation in Arterial blood by Pulse oximetry Respiratory rate Systolic blood pressure Diastolic blood pressure Provider Name and Address Organization Details Last Updated DateTime 4 179.07 cm 26 kg/m2 18834 g 97.1 [degF] 68 /min 98 % 98 % 20 /min 120 mm[Hg] 82 mm[Hg] GUERITA FRAGOSO CMA [facility] 4 13:33:58 Date Recorded Body height Body temperature Oxygen saturation Oxygen saturation in Arterial blood by Pulse oximetry Heart rate Body mass index (BMI) Body weight Systolic blood pressure Diastolic blood pressure Provider Name and Address Organization Details Last Updated DateTime 5 179.07 cm 97.3 [degF] 95 % 95 % 85 /min 27.8 kg/m2 26223.9 8 g 124 mm[Hg] 76 mm[Hg] Mandy Colin RN [facility] 5 11:42:53 Social History None recorded. Functional Status None recorded. Mental Status None recorded. Family History Nothing Reported. Medical History No medical history recorded. Immunizations Vaccine Type Date Status Note Provider Nam e and Address Organization Details Recorded Time Tdap 8 completed Not Available [facility] 03/07/2023 06:13:48 COVID-19, mRNA, LNP-S, PF, edgar-sucrose , 30 mcg/0.3 mL 5 cancelled patient objection [address], [place], [address], [facility] 04/29/2024 16:27:10 Influenza, split virus, trivalent, PF 5 cancelled patient objection [address], [place], [address], [facility] 04/29/2024 16:27:10 Past Encounters Encounter ID Performer Location Encounter Start Date Encounter Closed Date Diagnosis/Indication Diagnosis SNOMED-CT Code Diagnosis ICD10 Code [id number] [address] [address] 07/31/2023 08:13:13 07/31/2023 09:18:52 Ex-smoker 3548241 Z87.891 Hearing loss 80542276 H9 1.93 [id number] CHEO ROSAS MD [address] [address] 12/03/2023 13:26:32 12/03/2023 13:58:47 Tinea pedis 5361533 B35.3 [id number] [address] [address] 04/29/2024 11:32:05 04/29/2024 12:49:28 Active or passive immunization 110266716 Z23 Mass of soft tissue 4449 23484 R22.9 Tinea barbae 506278205 B 35.0 Adult heal th examination 841522029 Z00.00 Nightmares 827219734 F51 .5 Muscle twitch 35376754 R 25.3 Health Concerns Section Related Observation LastModified by Organization Detai ls LastModified Time None Recorded Concern Status LastModified by Organization Details LastModified Time None Recorded Advance Directives Directive None Recorded Payers Encounter Date Sequence Insurance Name Policy Number Policy Pressley Covered Member ID Pressley Member ID Guarantor Name 07/31/2023 1 *SELF PAY* Ph ilip I Rindelhardt 12/03/2023 1 *SELF PAY* Ph ilip I Rindelhardt 04/29/2024 1 *SELF PAY* Ph ilip I Rindelhardt Notes Date Note Type Note Provider Name and Address Organization Details Recorded Time 07/31/2023 text/html Here today becau se he has noticed gradual hearing loss in bilateral ears. He recently noticed some ear wax on his head piece and wants to make sure that his ears look ok. 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 [address] [facility] [address], [place], [address], [facility]. 08/05/2023 11:10:11 12/03/2023 text/html Michael is 48-year-old gentleman who has had a struggle with athlete's foot. He tried yfzq-asj-rodhifg things it seems to get little better but it comes right back up is becoming quite a nuisance for him. He also has noticed that he is developing some scabs in his brooke he does not want to shave his brooke off but is wondering what those things are. They do not hurt but they do itch when he scratches at them. He has tried multiple pncu-ibm-xukvniy athlete's foot medication including spray some Lamisil cream they were not particularly effective. He is otherwise feeling well. CHEO ROSAS MD [address], [place], [address], [facility], [facility]. 12/03/2023 15:19:56 04/29/2024 text/html The patient, Michael, presents with a history of vivid dreams and nightmares occurring approximately once a week or every other week, which have been affecting his sleep quality. He reports that some dreams are more realistic than others and often involve distressing situations. The patient's energy level upon waking varies, with some days feeling rested and others not. He consumes caffeine occasionally, with some days having none and other days having one or two cups. He has a history of smoking but has quit.Michael also reports experiencing sporadic eyelid twitching, lasting for a second or so each time, and occurring almost daily. The twitching does not wake him up. It is limited to the right eye-lid.The patient has noticed a soft, swollen, and squishy area below his right breast, which has been present since at least April 16. He denies any pain or known injury to the area.Additionally, Michael reports having brittle, soft, and weak nails that split easily, which he initially attributed to smoking but has since quit.Michael also describes experiencing what he believes to be a yeast infection on his face, particularly during the summer months. He reports having scabs that, when picked, release a clear liquid. The patient maintains good hygiene, using shampoo, conditioner, and brooke oil to care for his facial hair. [address], [place], [address], [facility]. 04/29/2024 16:34:26
--- OUTSIDE RECORDS SUMMARY | 2024-04-29 21:57 | XMS_ITS | Encounter Summary ---
Author Organization [facility] Rachel pitts [place] [address] Care Team Providers Care Psychological Operations Specialist Name Role Phone None Primary Care Provider Unavailabl e Encounter Details Date Type Department Care Team (Latest Contact Info) Description 04/11/2017 - 04/11/2017 11:59 PM EST Hospital Encounter Radiology Library at [facility] [place] [address] Viktor Lindquist MD [address] [place] [address] Pain Discharge Disposition: Home Social History Tobacco Use Types Packs/Day Years Used Date Smoking Tobacco: Never Assessed Sex and Gender Information Value Date Recorded Sex Assigned at Not on file Gender Identity Not on file Sexual Orientation Not on file documented as of this encounter Plan of Treatment Not on file documented as of this encounter Procedures Procedure Name Priority Date/Time Associated Diagnosis Comments FILM LIBRARY STORAGE ONLY MR UPPER EXTREMITY Routine 04/11/2017 12:00 AM EST Pain documented in this encounter Results * Film Library- Storage Only MR Upper Extremity (04/11/2017 12:00 AM EST) Narrative RAD - 07/08/2017 5:59 PM EDT This exam is for storage only and is auto-finalizing. Viktor Lindquist MD IMG FILM LIBRARY ORD ERABLES [facility] [place] documented in this encounter Visit Diagnoses Diagnosis Pain Generalized pain documented in this encounter Care Teams Psychological Operations Specialist Relationship Specialty Start Date End Date None None PCP - General 03/20/10 07/13/17 documented as of this encounter
--- OUTSIDE RECORDS SUMMARY | 2024-04-29 21:57 | XMS_ITS | Encounter Summary ---
Author Organization [facility] Address [address] [place] [address] Care Team Providers Care Fire Alarm Dispatcher Name Role Phone Unavailable Primary Care Provider Unavailabl e Reason for Visit * Reason Comments Pain DOI 2.2016 Work Related Injury DOI 2.2015 Encounter Details Date Type Department Care Team (Latest Contact Info) Description 12/13/2019 10:30 EDT Office Visit [facility] Sports Medicine Program - [address] [place] [address] Nathaniel Hickey MD [address] [place] [address] Left lateral epicondylitis (Primary Dx) Social History Tobacco Use Types Packs/Day Years Used Date Smoking Tobacco: Every Day Cigarettes 1 27 Smokeless Tobacco: Former Interpersonal Safety Answer Date Record ed Physically Hurt Never 11/28/2019 Verbally Threaten Not on file 11/28/2019 Sex and Gender Information Value Date Recorded Sex Assigned at Not on file Legal Sex Male 18:33 EST Gender Identity Not on file Sexual Orientation Not on file documented as of this encounter Last Filed Vital Signs Vital Sign Reading Time Taken Comments Blood Pressure - - Pulse - - Temperature - - Respiratory Rate - - Oxygen Saturation - - Inhaled Oxygen Concentration - - Weight 79.4 kg (175 lb) 12/13/2019 1030 EDT Height 182.9 cm (6') 12/13/2019 1030 EDT Body Mass Index 23.73 12/13/2019 1030 EDT documented in this encounter Functional Status * Because of a physical, mental, or emotional condition, does this person have difficulty doing errands alone such as visiting a doctor's office or shopping? Answer Date of Assessment Author Yes 09/16/2017 15:47 EDT documented as of this encounter Mental Status * Because of a physical, mental, or emotional condition, does this person have serious difficulty concentrating, remembering, or making decisions? Answer Entry Date Author No 09/16/2017 15:47 EDT documented in this encounter Ordered Prescriptions Prescription Sig Dispense Quantity Refills Last Filled Start Date End Date diclofenac sodium 1 % gelIndications:Left lateral epicondylitis Apply 1 - 2 inches of gel topically to left elbow 2 - 4 times a day as needed for pain. 100 g 2 12/13/2019 documented in this encounter Progress Notes * Nathaniel Hickey MD - 12/13/2019 1030 EDT Chief Complaint Patient presents with ??? Left Elbow - Pain, Work Related Injury DOI .2015 SUBJECTIVE: Michael Barr is a 44 y.o. right hand dominant male who presents to the office to follow up for his work related left elbow pain. He is doing pretty well. Still with some issues. He had a permanency rating and was given a 6% loss but it seems that workers compensation has him at zero. He feels a little weaker in the left elbow compared to the right. He is out of diclofenac gel and would like another script. He is now about 28 months after his left elbow PRP procedure. Performed July 2017. 1 out of 10 pain. He initially [...] no ecchymosis over flexor pronator region of forearm. No erythema. On palpation, there is mild tenderness [...] independently reviewed by me including AP, lateral and oblique views reveal a normal study. ASSESSMENT: Left elbow lateral epicondylosis. He has responded well to the PRP procedure. He had a PRP that helped about 28 months ago. He still has occasional pain and some weakness. Workers compensation injury. DOI 06/06/2015 PLAN: We discussed the diagnosis and multi-faceted treatment plan. He is not MMI at this time. We discussed other antiinflammatory options. We reviewed oral and topicals. We decided to reorder a topical nsaid, diclofenac gel 1%. We will refer to PT for some strengthening. He will look into getting the impairment rating by the workers comp doctor. It is possible that he will have a return of his symptoms. He will also likely need physical therapy intermittently in the future. He will return in about 2 months. The patient verbalized understanding of the above and agreed with this plan. All of his questions were answered to his satisfaction today. 25 minutes of face to face time was spent with the patient, 15 minutes were spent on counseling andcoordination of care of the patient's left elbow pain. Nathaniel Hickey M.D. 12/13/2019 10:53 Cc: Tereso Mckeon MD documented in this encounter Plan of Treatment Not on file documented as of this encounter Visit Diagnoses Diagnosis Left lateral epicondylitis- Primary Lateral epicondylitis of elbow documented in this encounter Discontinued Medications Medication Sig Discontinue Reason Start Date End Da te diclofenac sodium 1 % gel Apply 1 - 2 inches of gel topically to left elbow 2 - 4 times a day as needed for pain. Reorder 10/02/2018 12/13/2019 documented as of this encounter
--- OUTSIDE RECORDS SUMMARY | 2024-04-29 21:57 | XMS_ITS | Encounter Summary ---
Author Organization [facility] Address [address] [place] [address] Care Team Providers Care Rn Clinical Appeals Name Role Phone Unavailable Primary Care Provider Unavailabl e Reason for Visit * Reason Onset Date Comments Referral Request 02/17/2020 Encounter Details Date Type Department Care Team (Late st Contact Info) Description 02/17/2020 Telephone [facility] Sports Medicine Program - [address] [place] [address] Nathaniel Hickey MD [facility] [place] [address] Referral Request Social History Tobacco Use Types Packs/Day Years [...] documented as of this encounter Functional Status * Because of [...] 09/16/2017 15:47 EDT documented in this encounter Miscellaneous Notes * Telephone Encounter - Nathaniel Hickey MD - 02/20/2020 1533 EDT Referral placed for after 03/21/[address] Mauri Ramos. Nathaniel Hickey M.D. 02/17/2020 15:36 documented in this encounter Plan of Treatment Not on file documented as of this encounter Visit Diagnoses Diagnosis Left lateral epicondylitis- Primary Lateral epicondylitis of elbow documented in this encounter
--- OUTSIDE RECORDS SUMMARY | 2024-04-29 21:57 | XMS_ITS | Encounter Summary ---
Author Organization [facility] Address [address] [place] [address] Care Team Providers Care Well Driller Helper Name Role Phone Unavailable Primary Care Provider Unavailabl e Reason for Visit * Reason Onset Date Comments Appointment Related 12/04/2018 cancel Encounter Details Date Type Department Care Team (Late st Contact Info) Description 12/04/2018 Telephone [facility] Sports Medicine Program - [address] [place] [address] Nathaniel Hickey MD [address] [place] [address] Appointment Related (cancel) Social History Tobacco Use Types Packs/Day Years Used Date Smoking Tobacco: Every Day Cigarettes 1 27 Smokeless Tobacco: Former Sex and Gender Information Value Date Recorded [...] encounter Miscellaneous Notes * Telephone Encounter - Mikaela Rose - 12/04/2018 1818 EDT PAS Message: William from [facility] calling to cancel appointment scheduled December 08 at 9:00am at [facility] with Dr Nathaniel Hickey. Patient has a conflict in schedule. Patient would like a call backto reschedule. [phone]. documented in this encounter Plan of Treatment Not on file documented as of this encounter Visit Diagnoses Not on filedocumented in this encounter
--- OUTSIDE RECORDS SUMMARY | 2024-04-29 21:57 | XMS_ITS | Encounter Summary ---
Author Organization [facility] Address [address] [place] [address] Care Team Providers Care Day Camp Unit Leader Name Role Phone Unavailable Primary Care Provider Unavailabl e Reason for Referral * Radiology Services (Routine/Next Available) - New Request Specialty Diagnoses / Procedures Referred By Contac t Referred To Contact Diagnoses Left elbow pain Procedures MSK US ELBOW Nathaniel Hickey MD Phone: tel: fax: Referral ID Status Reason Start Date Expiration Date V isits Requested Visits Authorized [id number] New Request 08/07/2017 1 1 Encounter Details Date Type Department Care Team (Late st Contact Info) Description 08/07/2017 Orders Only [facility] Sports Medicine Program - [address] [address] Nathaniel Hickey MD [address] [place] [phone] Left elbow pain (Primary Dx) Social History Tobacco Use Types [...] Procedure Name Priority Date/Time Associated Diagnosis Comments MSK US ELBOW Routine 08/07/2017 17:26 EDT Left elbow pain documented in this encounter Results * MSK US ELBOW (08/07/2017 17:26 EDT) Anatomical Region Laterality Modality Other 08/07/2017 17:2 6 EDT Narrative 08/07/2017 17:26 EDT Non Reportable Exam Procedure Note JEWEL INSPECTOR, IMAGING - 08/08/2017 Non Reportable Exam us Nathaniel Hickey MD IMG US ORDERABLES Final Re sult documented in this encounter Visit Diagnoses Diagnosis Left elbow pain- Primary Pain in joint, upper arm documented in this encounter
--- OUTSIDE RECORDS SUMMARY | 2024-04-29 21:57 | XMS_ITS | Clinical Summary ---
Author Organization [facility] [place] [address] Care Team Providers Care Embosser Apprentice Name Role Phone Tereso Mckeon MD Primary Care Provider Allergies Active Allergy Reactions Criticality Noted Date Comments Penicillins Social History Tobacco Use Types Packs/Day Years Used Date Smoking Tobacco: Never Assessed Sex and Gender Information Value Date Recorded Sex Assigned at Not on file Gender Identity Not on file Sexual Orientation Not on file Plan of Treatment Health Maintenance Due Date Last Done Comments CT Colonography 1976 Colonoscopy 1976 Colorectal Cancer Screening 1976 FIT DNA 1976 FIT 1976 Sigmoidoscopy (10 year) with FIT yearly 1976 Sigmoidoscopy 1976 HIV screen 1994 Hepatitis C Screening 1994 Lipid Screening 1994 Hepatitis B vaccine (0-59 yrs) (1) 09/26/1995 Tetanus/Diphtheria/Pertussis Vaccines (1 - Tdap) 09/25 Covid-19 Vaccine ( - season) 2023 Influenza (Flu) vaccine (1 o f 1 - Influenza standard series) 12/28/2023 Care Teams Embosser Apprentice Relationship Specialty Start Date End Date Tereso Mckeon MD [address] [place] [address] PCP - General Family Medicine 07/14/17
--- OUTSIDE RECORDS SUMMARY | 2024-04-29 21:57 | XMS_ITS | Encounter Summary ---
Author Organization [facility] Address [address] [place] [address] Care Team Providers Care Application Specialist Name Role Phone Unavailable Primary Care Provider Unavailabl e Reason for Visit * Reason Comments Follow-up Left Elbow NO DOI/DO S Encounter Details Date Type Department Care Team (Latest Contact Info) Description 09/16/2017 15:45 EDT Office Visit [facility] Sports Medicine Program - [address] [place] [address] Nathaniel Hickey MD [address] [place] [phone] Left lateral epicondylitis (Primary Dx) [...] - - Weight 79.4 kg (175 lb) 09/16/2017 1546 EDT Height 182.9 cm (6') 09/16/2017 1546 EDT Body Mass Index 23.73 09/16/2017 1546 EDT documented in this encounter Functional Status [...] 09/16/2017 15:47 EDT documented in this encounter Progress Notes * Nathaniel Hickey MD - 09/16/2017 1545 EDT Chief Complaint Patient presents with ??? Follow-up Left Elbow NO DOI/DOS SUBJECTIVE: Michael Barr is a 41 y.o. right hand dominant male who presents to the office to follow up now 6 weeks after his left elbow PRP procedure. Not a lot of pain afterwards. He has been doing PT at [facility] and will be doing PT at [facility]. 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 He has some pain with steering but he swaps it. 1 out of 10 pain. He initially presented with a 2 year history of insidious onset left lateral elbow pain. 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 He has been followed by CAMERON Jay. He has had two corticosteroid injections that helped quite [...] reviewed and there are no changes. OBJECTIVE: Ht 182.9 cm (72) Wt 79.4 kg (175 lb) BMI 23.73 kg/m2 General: awake, alert, NAD, pleasant EENT: extraocular motion grossly intact Pulmonary: normal respirations, non-labored breathing Psych: normal affect, thoughts are logical and sequential Examination of the left elbow On observation, there is no effusion. There is no ecchymosis over flexor pronator region of forearm. No erythema. On palpation, there is trace tenderness over the lateral epicondyle. There is no tenderness over the medial epicondyle. No tenderness over the cubital tunnel. Range of motion of the elbow is full. Resisted elbow extension reveals 5/5 motor strength. Resisted wrist extension, resisted supination and resisted 3rd and 4th finger extension result in trace tenderness at the lateral epicondylar region. Distal neurovascular examination is intact. DIAGNOSTIC DATA: MRI of the left elbow reveals a moderate grade partial tear of the common extensor tendon with tendinosis. Plain films of the left elbow taken today and independently reviewed by me including AP, lateral and oblique views reveal a normal study. ASSESSMENT: Left elbow lateral epicondylosis. Recalcitrant to conservative treatments. He is here for his first follow up 6 weeks after a PRP injection. He is improving well. Workers compensation injury. PLAN: We discussed the diagnosis and multi-faceted treatment plan. He will continue PT at [facility]. Continue with the activity modification to avoid lifting or carrying. He will return in 6 weeks. If he is not markedly improved, will consider either repeat PRP or surgery. The patient verbalized understanding of the above and agreed with this plan. All of his questions were answered to his satisfaction today. 25 minutes of face to face time was spent with the patient, 15 minutes were spent on counseling andcoordination of care of the patient's left elbow pain. Nathaniel Hickey M.D. 09/16/2017 15:56 Cc: Tereso Mckeon documented in this encounter Plan of Treatment Not on file documented as of this encounter Visit Diagnoses Diagnosis Left lateral epicondylitis- Primary Lateral epicondylitis of elbow documented in this encounter
--- OUTSIDE RECORDS SUMMARY | 2024-04-29 21:57 | XMS_ITS | Encounter Summary ---
Author Organization [facility] Address [address] [place] [address] Care Team Providers Care Application Penetration Tester Name Role Phone Unavailable Primary Care Provider Unavailabl e Reason for Visit * Reason Onset Date Comments Returning Call 05/20/2017 Encounter Details Date Type Department Care Team (Late st Contact Info) Description 05/20/[address] [facility] Hand & Upper Extremity Program - [facility] [address] [facility] [place] [address] Esperanza Mendoza PA-C [address] [place] [address] Returning Call Social History Tobacco Use Types Packs/Day Years Used Date Smoking Tobacco: Never Assessed Sex and Gender Information Value Date Recorded Sex Assigned at Not on file Legal Sex Male 18:33 EST Gender Identity Not on file Sexual Orientation Not on file documented as of this encounter Miscellaneous Notes * Telephone Encounter - Wesley Flowers - 05/20/2017 0821 EST Left message for Michael letting him know that Esperanza had not called him last week so we are unsure of who was trying to contact him. He was also given the date/time of his upcoming appointments with OT and Nathaniel Hickey MD. Wesley Flowers 05/20/17 documented in this encounter Plan of Treatment Not on file documented as of this encounter Visit Diagnoses Not on filedocumented in this encounter
--- OUTSIDE RECORDS SUMMARY | 2024-04-29 21:57 | XMS_ITS | Encounter Summary ---
Author Organization [facility] Address [address] [place] [address] Care Team Providers Care Lamp Cleaner Name Role Phone Unavailable Primary Care Provider Unavailabl e Reason for Referral * Referral (Routine) - Authorized Specialty Diagnoses / Procedures Referred By Contact Referred To Contact Physical Medicine and Rehab Diagnoses Radial tunnel syndrome, left Procedures EMG/NERVE CONDUCTION STUDY Mauri Ramos MD Phone: tel: fax: [facility] Physical Medicine & Rehabilitation - [facility] [place] [address] Phone: tel: fax: Referral ID Status Reason Start Date Expiration Date V isits Requested Visits Authorized [id number] Authorized 05/12/2020 1 1 Reason for Visit * Reason Comments Injury * Consult (Routine) - Order Cancelled Specialty Diagnoses / Procedures Referred By Monty bradley Referred To Contact Orthopedic Surgery Diagnoses Left lateral epicondylitis Nathaniel Hickey MD Phone: tel: fax: [facility] Orthopedic Surgery - [address] [place] [address] Phone: tel: fax: Referral ID Status Reason Start Date Expiration Date Visits Requested Visits Authorized [id number] Order Cancelled Specialty Services Required 0 1 1 Encounter Details Date Type Department Care Team (Latest Contact Info) Description 05/12/2020 15:00 EST Office Visit [facility] Orthopedic Surgery - [address] [place] [address] Mauri Ramos MD [address] [place] [phone] Radial tunnel syndrome, left (Primary Dx); Left lateral epicondylitis Social History Tobacco Use Types Packs/Day Years Used Date Smoking Tobacco: Every Day Cigarettes 1 27 Smokeless Tobacco: Former Tobacco Cessation:Ready to Q uit: Yes; Counseling Given: Yes Interpersonal Safety Answer Date Record ed Physically [...] kg (175 lb) 05/12/2020 1501 EST pe p t Height 182.9 cm (6') 05/12/2020 1501 EST per pt Body Mass Index 23.73 05/12/2020 1501 EST documented in this encounter Functional Status * [...] documented in this encounter Progress Notes * Muari Ramos MD - 05/12/2020 1500 EST The patient presents with pain involving his Left elbow. The patient's pain is rated as 0 (No Pain)- 2/10 and does not radiate. 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 After receiving a cortisone injection things got better until he changed jobs and began working at [employer] when pain increased. Patient states hereceived a second injection of cortisone and now [...] Issues x The patient is a 44-year-old [place] man who presents today with left elbow pain. Symptoms began about 5 years ago with a work-related injury due to repetitive opening of espinoza. 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 He had previous cortisone injections for lateral epicondylitis and thesegave him relief from symptoms. In 2018 he had a PRP injection with Dr. Hickey which also gave him relief from most of his symptoms, however at this point he feels like his left elbow is not normal. Hecontinues to have pain that he rates as [...] modalities but also has done strengthening exercises. Withhis eccentric strengthening exercises for wrist extension he [...] sign over the radial tunnel is positive and the patient has a positive radial tunnel compression [...] that study is complete. If we see no evidence of radial tunnel syndrome we will discuss further work-up with an MRI versus a cortisone injection into the radial tunnel to try to confirm the diagnosis in that manner. documented in this encounter Plan of Treatment Scheduled Orders Name Type Priority Associated Diagnoses Orde r Schedule EMG/NERVE CONDUCTION STUDY Procedures Routine Radial tunnel syndrome, left Ordered: 05/12/2020 documented as of this encounter Visit Diagnoses Diagnosis Radial tunnel syndrome, left- Primary Left lateral epicondylitis Lateral epicondylitis of elbow documented in this encounter
--- OUTSIDE RECORDS SUMMARY | 2024-04-29 21:57 | XMS_ITS | Encounter Summary ---
Author Organization [facility] Address [address] [place] [address] Care Team Providers Care Disposal Worker Name Role Phone Unavailable Primary Care Provider Unavailabl e Reason for Visit * Reason Comments Appointment Related Encounter Details Date Type Department Care Team (Late st Contact Info) Description 07/31/2017 Telephone [facility] Sports Medicine Program - [address] [place] [address] Nathaniel Hickey MD [address] [place] [phone] Appointment Related Social History Tobacco Use Types Packs/Day Years Used Date Smoking Tobacco: Never Assessed Sex and Gender Information Value Date Recorded Sex Assigned at Not on file Legal Sex Male 18:33 EST Gender Identity Not on file Sexual Orientation Not on file documented as of this encounter Miscellaneous Notes * Telephone Encounter - Amira Larios - 07/31/2017 1046 EDT Michael called because he missed his appointment with Dr. Villavicencio this morning. He had a work emergency late last night and overslept. He knows that it will take a long time to get another appointment with Dr. Villavicencio. He is hoping to get Dr. Villavicencio's opinion on whether he should even consider surgery, but I expressed that I don't think he would give his opinion without first seeing the patient. I transferred the call along to Constanza so he could leave a message with her. He has an appointment for PRP scheduled with Dr. Hickey on 08/07. Amira Larios documented in this encounter Plan of Treatment Not on file documented as of this encounter Visit Diagnoses Not on filedocumented in this encounter
--- OUTSIDE RECORDS SUMMARY | 2024-04-29 21:57 | XMS_ITS | Encounter Summary ---
Author Organization [facility] Address [address] [place] [address] Care Team Providers Care Certified Meeting Professional Name Role Phone Unavailable Primary Care Provider Unavailabl e Reason for Referral * PT/OT/ST (Routine) - Authorized Specialty Diagnoses / Procedures Referred By Monty bradley Referred To Contact Diagnoses Left lateral epicondylitis Nathaniel Hickey MD Phone: tel: fax: Referral ID Status Reason Start Date Expiration Date Visits Requested Visits Authorized [id number] Authorized Specialty Services Required 08/07/2017 1 1 Question Answer Reason for Request: left lateral epicondylitis, PRP on 08/07/17 Return Visit to Provider: 6 weeks Comments Please see protocol. weight trainer services included. Reason for Visit * Reason Comments Elbow Pain left * Prior Authorization (Routine) - Specialty Report Received Specialty Diagnoses / Procedures Referred By Monty bradley Referred To Contact Diagnoses Left elbow pain Nathaniel Hickey MD Phone: tel: fax: Referral ID Status Reason Start Date Expiration Date Visits Requested Visits Authorized [id number] Specialty Report Received Specialty Services Required 06/13/2017 1 1 Encounter Details Date Type Department Care Team (Latest Contact Info) Description 08/07/2017 13:30 EDT Office Visit [facility] Sports Medicine Program - [address] [address] Nathaniel Hickey MD [address] [place] [phone] Left lateral epicondylitis (Primary Dx) Social History Tobacco Use Types Packs/Day Years Used Date Smoking Tobacco: Never Assessed Sex and Gender Information Value Date Recorded Sex Assigned at Not on file Legal Sex Male 18:33 EST Gender Identity Not on file Sexual Orientation Not on file documented as of this encounter Ordered Prescriptions Prescription Sig Dispense Quantity Refills Last Filled Start Date End Date oxyCODONE-acetamino phen (PERCOCET) 5-325 mg per tabletIndications:L eft lateral epicondylitis Take 1 Tab by mouth every 4 hours as needed for Pain. Daily Max: 6 Tabs 6 Tab 08/07/2017 documented in this encounter Progress Notes * Nathaniel Hickey MD - 08/07/2017 1330 EDT Chief Complaint [...] the patient and consent was obtained. The final Verification/time out immediately prior to incision/procedure has been conducted by me and membersof the procedural team as appropriate to their involvement in the procedure. The patient???s identity, procedure, and when applicable the: side/site, patient position, [...] was fenestrated at least 50 times with the needle. During this fenestration process, 3 cc of [...] above plan. Nathaniel Hickey M.D. 08/07/2017 14:51 * Harriet, Amira - 08/07/2017 1330 EDT I. Patient is here for an US guided injection- Lidocaine 2% 20 mg/mL 2cc 1. Med given in left elbow 2. Med lot number: [id number] ND number: [id number] 3. Exp date: 12/14 Slip Maker: [employer]osp[employer] I. Patient is here for an US guided injection -Bupivacaine 0.5 % 50mg/10mL 2cc 1. Med given in left elbow 2. Med lot number: [id number] [facility] number: [id number] 3. Exp date: 08/14 Slip Maker: [email or web address] Amira Larios 08/07/17 documented in this encounter Plan of Treatment Scheduled Referrals Name Type Priority Associated Diagnoses Orde r Schedule AMB CONS/FOLLOW UP PHYSICAL THERAPY Outpatient Referral Routine Left lateral epicondylitis Ordered: 08/07/2017 documented as of this encounter Visit Diagnoses Diagnosis Left lateral epicondylitis- Primary Lateral epicondylitis of elbow documented in this encounter Orders Equipment Count Last Ordered Date First Orde red Date PADDED SLING - SLING/SWATHE ([id number]) 1 08/07 documented in this encounter
--- OUTSIDE RECORDS SUMMARY | 2024-04-29 21:57 | XMS_ITS | Encounter Summary ---
Author Organization [facility] Address [address] [place] [address] Care Team Providers Care Adjunct History Instructor Name Role Phone Unavailable Primary Care Provider Unavailabl e Reason for Visit * Reason Comments Follow-up DOI 2.2015 Work Related Injury DOI 2.2015 Encounter Details Date Type Department Care Team (Latest Contact Info) Description 02/07/2020 9:30 EDT Office Visit [facility] Sports Medicine Program - [address] [place] [address] Nathaniel Hickey MD [address] [place] [phone] Left lateral epicondylitis (Primary Dx) [...] (6') 02/07/2020921 EDT Body Mass Index 23.73 02/07/2020921 EDT documented in this encounter Functional Status [...] Progress Notes * Nathaniel Hickey MD - 02/07/2020 0930 EDT Chief Complaint Patient presents with ??? Left Elbow - Follow-up, Work Related Injury DOI SUBJECTIVE: Michael Barr is a 44 y.o. right hand dominant male who presents to the office to follow up for his work related left elbow pain. He seems to be having more pain. Still with some issues. Has been going to PT at [facility]. Has been doing eccentrics and having dry [...] workers compensation has him at zero. He initially presented with a 2 year [...]
--- OUTSIDE RECORDS SUMMARY | 2024-04-29 21:57 | XMS_ITS | Encounter Summary ---
Author Organization [facility] Address [address] [place] [address] Care Team Providers Care Java Lead Architect Name Role Phone Tereso Lam MD Primary Care Provider Unavailab le Encounter Details Date Type Department Care Team (Late st Contact Info) Description 04/29/2017 Results Only Imaging [facility] [phone] Unknown, Provider, Social History Tobacco Use Types Packs/Day Years Used Date Smoking Tobacco: Never Assessed Sex and Gender Information Value Date Recorded Sex Assigned at Not on file Legal Sex Male 18:33 EST Gender Identity Not on file Sexual Orientation Not on file documented as of this encounter Plan of Treatment Pending Results Name Type Priority Associated Diagnoses Date /Time OUTSIDE IMAGES - MR MSK Imaging 0 04/29/2017 15:14 EST documented as of this encounter Visit Diagnoses Not on filedocumented in this encounter Care Teams Java Lead Architect Relationship Specialty Start Date End Date Tereso Lam MD PCP - General 03/07/15 04/29/17 documented as of this encounter
--- OUTSIDE RECORDS SUMMARY | 2024-04-29 21:57 | XMS_ITS | Encounter Summary ---
Author Organization [facility] Address [address] [place] [address] Care Team Providers Care Applications Chemist Name Role Phone Unavailable Primary Care Provider Unavailabl e Reason for Visit * Reason Comments Elbow Pain left * Consult (Routine) - Specialty Report Received Specialty Diagnoses / Procedures Referred By Monty bradley Referred To Contact Orthopedic Surgery Diagnoses Left lateral epicondylitis Esperanza Mendoza PA-C Phone: tel: fax: Nathaniel Hickey MD Phone: tel: fax: Referral ID Status Reason Start Date Expiration Date Visits Requested Visits Authorized [id number] Specialty Report Received Specialty Services Required 05/08/2017 1 1 Encounter Details Date Type Department Care Team (Latest Contact Info) Description 06/13/2017 9:30 EST Office Visit [facility] Sports Medicine Program - [address] [address] Nathaniel Hickey MD [address] [place] [phone] Left lateral epicondylitis (Primary Dx) Discharge Disposition: Auto Discharge Social History Tobacco Use Types Packs/Day Years [...] Discharge Diagnoses Diagnosis M25.522 Pain in left elbow-M25.522[ICD-10-CM] documented in this encounter Discharge Disposition Disposition Code Departure Means Destination Auto Discharge documented in this encounter Progress Notes * Nathaniel Hickey MD - 06/13/2017 0930 EST Chief Complaint Patient presents with ??? Elbow Pain left Michael Barr is seen in consultation at the request of CAMERON Jay for evaluation of left elbow pain. SUBJECTIVE: Michael Barr is a 41 y.o. right hand dominant male who presents to the office with a 2 yearhistory of insidious onset left lateral elbow pain. 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 He has been followed by CAMERON Jay. He has had two corticosteroid injections that helped quite a bit. The first helped for about seven months. He had a second injection that also helped for about six months or so. He has gone to PT in [place]. Partial benefit. This is a workers compensation injury. DOI 06/06/2015. He is working full duty. No restrictions. He does try to avoid using the left arm to lift. He is scheduled to meet with a surgeon in [facility]. 2 out of 10 pain. PMH: neg PSH: neg No current outpatient prescriptions on file. No current facility-administered medications for this visit. Allergies Allergen Reactions ??? 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 No erythema. On palpation, there is moderate tenderness over the lateral epicondyle. There is no tenderness overthe medial epicondyle. No tenderness over the cubital [...] patient, 25 minutes were spent on counseling andcoordination of care of the patient's left elbow pain. I would like to thank CAMERON Jay for this kind referral. I appreciate the opportunity to assist in Michael Barr's care. Nathaniel Hickey M.D. 06/13/2017 12:52 Cc: Tereso Mckeon documented in this encounter Plan of Treatment Not on file documented as of this encounter Visit Diagnoses Diagnosis Left lateral epicondylitis- Primary Lateral epicondylitis of elbow documented in this encounter
--- OUTSIDE RECORDS SUMMARY | 2024-04-29 21:57 | XMS_ITS | Encounter Summary ---
Author Organization [facility] Address [address] [place] [address] Care Team Providers Care Armature Straightener Name Role Phone Unavailable Primary Care Provider Unavailabl e Reason for Referral * Radiology Services (Routine) - New Request Specialty Diagnoses / Procedures Referred By Contac t Referred To Contact Diagnoses Left elbow pain Procedures ELBOW 3 OR MORE VIEWS Nathaniel Hickey MD Phone: tel: fax: Referral ID Status Reason Start Date Expiration Date V isits Requested Visits Authorized [id number] New Request 06/11/2017 1 1 Reason for Visit * Reason Comments Elbow Pain Encounter Details Date Type Department Care Team (Late st Contact Info) Description 06/11/2017 Orders Only [facility] Sports Medicine Program - [address] [address] Nathaniel Hickey MD [address] [place] [phone] Left elbow pain (Primary Dx) Social [...] Procedure Name Priority Date/Time Associated Diagnosis Comments ELBOW 3 OR MORE VIEWS Routine 06/13/2017 9:30 EST Left elbow pain documented in this encounter Results * ELBOW 3 OR MORE VIEWS (06/13/2017 9:30 EST) Anatomical Region Laterality Modality Other 06/13/2017 9:30 EST 06/13/2017 9:48 EST Narrative 06/13/2017 9:48 EST ELBOW 3 OR MORE VIEWS ??06/13/2017 9:30 AM Clinical History/Comments: M25.522-Pain in left [id number]-[id number]; left elbow pain COMPARISON: None available. FINDINGS: Left elbow AP lateral and oblique views are obtained. No acute fracture, dislocation or left elbow joint effusion is demonstrated. Minimal degenerative changes are visualized in the elbow joint. Procedure Note Steve Dubon MD - 06/13/2017 ELBOW 3 OR MORE VIEWS 06/13/2017 9:30 AM Clinical History/Comments: M25.522-Pain in left [id number]; left elbow pain COMPARISON: None available. FINDINGS: Left elbow AP lateral and oblique views are obtained. No acute fracture, dislocation or left elbow joint effusion is demonstrated. Minimal degenerative changes are visualized in the elbow joint. Nathaniel Hickey MD IMG DIAGNOSTIC IMAGING ORD ERABLES Final Result documented in this encounter Visit Diagnoses Diagnosis Left elbow pain- Primary Pain in joint, upper arm documented in this encounter
--- OUTSIDE RECORDS SUMMARY | 2024-04-29 21:57 | XMS_ITS | Encounter Summary ---
Author Organization [facility] Address [address] [place] [address] Care Team Providers Care Home Service Director Name Role Phone Unavailable Primary Care Provider Unavailabl e Encounter Details Date Type Department Care Team (Late st Contact Info) Description 12/13/2019 Orders Only [facility] Sports Medicine Program - [facility] [address] [place] [address] Nathaniel Hickey MD [address] [place] [address] Left elbow pain (Primary Dx) Social [...] 09/16/2017 15:47 EDT documented in this encounter Plan of Treatment Not on file documented as of this encounter Visit Diagnoses Diagnosis Left elbow pain- Primary Pain in joint, upper arm documented in this encounter
--- OUTSIDE RECORDS SUMMARY | 2024-04-29 21:57 | XMS_ITS | Encounter Summary ---
Author Organization [facility] Address [address] [place] [address] Care Team Providers Care Arbor End Mainspring Former Name Role Phone Unavailable Primary Care Provider Unavailabl e Reason for Visit * Reason Onset Date Comments Returning Call 05/20/2017 Encounter Details Date Type Department Care Team (Late st Contact Info) Description 05/20/2017 Telephone [facility] Hand & Upper Extremity Program - [facility] [address] [place] [address] Esperanza Mendoza PA-C [address] [place] [address] Returning Call Social History Tobacco Use Types Packs/Day Years Used Date Smoking Tobacco: Never Assessed Sex and Gender Information Value Date Recorded Sex Assigned at Not on file Legal Sex Male 18:33 EST Gender Identity Not on file Sexual Orientation Not on file documented as of this encounter Miscellaneous Notes * Telephone Encounter - Wesley Flowers - 05/20/2017 1121 EST Michael had left another message saying that someone had called him that he assumed was Esperanza and hewould like another call back. When I called back Michael did answer and we discussed his upcoming appointment dates for therapy and to meet Nathaniel Hickey. After this Michael said he had some questions about what the recovery time would be if he were to have a PRP injection as he believed it would be 12weeks. I told him that I was unsure but based on the handout we have that seemed to be correct. Michael started to ask more specific questions about the procedure. When I attempted to tell him that hewould have to speak with Dr. Hickey's clinic to answer those questions he became very angry, yellingat me to stop talking, accusing me of [...]
--- OUTSIDE RECORDS SUMMARY | 2024-04-29 21:57 | XMS_ITS | Referral Summary ---
Author Organization [facility] Address [address] [place] [address] Care Team Providers Care Projection Welding Machine Operator Name Role Phone Sindi Montgomery PAVEL Primary Care Provider [phone] Allergies Active Allergy Reactions Criticality Noted Date Comments Penicillin G Other (See Comments) 05/08/2017 Gets blisters on hands Medications oxyCODONE-acetami nophen (PERCOCET) 5-325 mg per tabletIndications :Left lateral epicondylitis Take 1 Tab by mouth every 4 hours as needed for Pain. Daily Max: 6 Tabs 6 Tab 8 Active Additional Information Patient not taking.Reported on 09/16/2017 diclofenac sodium 1 % gelIndications:Le ft lateral epicondylitis Apply 1 - 2 inches of gel topically to left elbow 2 - 4 times a day as needed for pain. 100 g 2 0 Active Active Problems No known active problems Social History Tobacco Use Types Packs/Day Years [...] on file Sexual Orientation Not on file Last Filed Vital Signs Vital Sign Reading Time Taken Comments Blood Pressure - - Pulse - - Temperature - - Respiratory Rate - - Oxygen Saturation - - Inhaled Oxygen Concentration - - Weight 79.4 kg (175 lb) 05/12/2020 1501 EST pe p t Height 182.9 cm (6') 05/12/2020 1501 EST per pt Body Mass Index 23.73 05/12/2020 1501 EST Functional Status * Because of a physical, mental, or emotional condition, does this person have difficulty doing errands alone such as visiting a doctor's office or shopping? Answer Date of Assessment Author Yes 09/16/2017 15:47 EDT Mental Status * Because of a physical, mental, or emotional condition, does this person have serious difficulty concentrating, remembering, or making decisions? Answer Entry Date Author No 09/16/2017 15:47 EDT Plan of Treatment Not on file Insurance [facility] Care Teams Projection Welding Machine Operator Relationship Specialty Start Date End Date Sindi Montgomery FNP [address] [facility] [address] [place] [address] PCP - General 08/26/21
--- OUTSIDE RECORDS SUMMARY | 2024-04-29 21:57 | XMS_ITS | Encounter Summary ---
Author Organization [facility] Address [address] [place] [address] Care Team Providers Care Final Inspector Truck Trailer Name Role Phone Sindi Montgomery PAVEL Primary Care Provider [phone] Encounter Details Date Type Department Care Team (Late st Contact Info) Description 10/20/2021 Lab Requisition [facility] Pathology & Laboratory Medicine - [facility] [address] [place], [place] [id number] Outr Resulting Lab, Provider Social History Tobacco Use Types Packs/Day Years [...] Procedure Name Priority Date/Time Associated Diagnosis Comments CELIAC DISEASE PANEL Routine 10/19/2021 15:28 EDT documented in this encounter Results * CELIAC DISEASE PANEL (10/19/2021 15:28 EDT) Tissue Transglutaminase Antibody IGA <1.2 <4.0 U/mL 10/22/2021 12:44 EDT [facility] Comment: A negative result may be due to IgA deficiency and does not rule out celiac disease. ? Negative: ??<4.0 U/mL ? Weak Positive: ??4.0 - 10.0 U/mL ? Positive: ??>10.0 U/mL Results were obtained with the [employer] Lite R h-tTG IgA JOSE MANUEL assay on the Buzzient DSX. IgA 208 85 - 499 mg/dL 10/22/2021 12:44 EDT [facility] Celiac Disease Interpretation Negative Serology. Celiac disease unlikely. Approximately 10% of patients with celiac disease are seronegative. Patients who are already adhering to a gluten-free diet may also be seronegative. If celiac disease is highly clinically suspected, referral to gastroenterology for additional evaluation is recommended. 10/22/2021 12:44 EDT [facility] Blood VENOUS BLOOD / Unknown 10/19/2021 15:28 EDT 10/21/2021 16:52 EDT us Provider Outr Resulting Lab IMMUNOLOGY AND SEROL OGY ORDERABLES Final Result Performing Organization Address City/State/[facility] Co de Phone Number [facility] [address] [place] [address] documented in this encounter Visit Diagnoses Not on filedocumented in this encounter Care Teams Final Inspector Truck Trailer Relationship Specialty Start Date End Date Sindi Montgomery FNP [address] [place] [address] [address] [place] [address] PCP - General 08/26/21 documented as of this encounter
--- OUTSIDE RECORDS SUMMARY | 2024-04-29 21:57 | XMS_ITS | Encounter Summary ---
Author Organization [facility] Address [address] [place] [address] Care Team Providers Care Replenishment Analyst Name Role Phone Unavailable Primary Care Provider Unavailabl e Reason for Visit * Reason Comments Elbow Pain Encounter Details Date Type Department Care Team (Late st Contact Info) Description 08/13/2017 Telephone [facility] Sports Medicine Program - [facility] [address] [facility] [place] [address] Nathaniel Hickey MD [address] [place] [address] Elbow Pain Social History Tobacco Use Types Packs/Day Years Used Date Smoking Tobacco: Never Assessed Sex and Gender Information Value Date Recorded Sex Assigned at Not on file Legal Sex Male 18:33 EST Gender Identity Not on file Sexual Orientation Not on file documented as of this encounter Miscellaneous Notes * Telephone Encounter - Amira Larios - 08/13/2017 [...]
--- OUTSIDE RECORDS SUMMARY | 2024-04-29 21:57 | XMS_ITS | Encounter Summary ---
Author Organization [facility] Address [address] [place] [address] Care Team Providers Care Rough Rounder Machine Name Role Phone Unavailable Primary Care Provider Unavailabl e Reason for Visit * Reason Onset Date Comments Other 05/08/2017 Encounter Details Date Type Department Care Team (Late st Contact Info) Description 05/08/2017 Telephone [facility] Hand & Upper Extremity Program - [facility] [address] [place] [address] Esperanza Mendoza PA-C [address] [place] [address] Other Social History Tobacco Use Types Packs/Day Years Used Date Smoking Tobacco: Never Assessed Sex and Gender Information Value Date Recorded Sex Assigned at Not on file Legal Sex Male 18:33 EST Gender Identity Not on file Sexual Orientation Not on file documented as of this encounter Miscellaneous Notes * Telephone Encounter - Wesley Flowers - 05/08/2017 1439 EST Faxed office notes to Michael's wood cabinetmaker as requested. Wesley Flowers 05/08/17 documented in this encounter Plan of Treatment Not on file documented as of this encounter Visit Diagnoses Not on filedocumented in this encounter
--- OUTSIDE RECORDS SUMMARY | 2024-04-29 21:57 | XMS_ITS | Encounter Summary ---
Author Organization [facility] Address [address] [place] [address] Care Team Providers Care Electrophysiology Scientist Name Role Phone Unavailable Primary Care Provider Unavailabl e Reason for Referral * Prior Authorization (Routine) - Specialty Report Received Specialty Diagnoses / Procedures Referred By Monty bradley Referred To Contact Diagnoses Left elbow pain Nathaniel Hickey MD Phone: tel: fax: Referral ID Status Reason Start Date Expiration Date Visits Requested Visits Authorized [id number] Specialty Report Received Specialty Services Required 06/13/2017 1 1 Question Answer Reason for Request: L LATERAL ELBOW PRP INJ Comments The purpose of this consult request is to inform the scheduling staff that a procedure/surgery needs to be prior-authorized before it is scheduled. W/C PRP Encounter Details Date Type Department Care Team (Late st Contact Info) Description 06/13/2017 Orders Only [facility] Sports Medicine Program - [address] [address] Nathaniel Hickey MD [address] [place] [phone] Left elbow pain (Primary Dx) Social History Tobacco Use Types Packs/Day Years Used Date Smoking Tobacco: Never Assessed Sex and Gender Information Value Date Recorded Sex Assigned at Not on file Legal Sex Male 18:33 EST Gender Identity Not on file Sexual Orientation Not on file documented as of this encounter Plan of Treatment Scheduled Referrals Name Type Priority Associated Diagnoses Order Schedule AMB CONS/FOLLOW UP PROCEDURE PRIOR AUTHORIZATION REQUEST Outpatient Referral Routine Left elbow pain Ordered: 06/13/2017 documented as of this encounter Visit Diagnoses Diagnosis Left elbow pain- Primary Pain in joint, upper arm documented in this encounter
--- OUTSIDE RECORDS SUMMARY | 2024-04-29 21:57 | XMS_ITS | Clinical Summary ---
Author Organization [facility] Address [address] [place] [address] Care Team Providers Care Seafood Service Team Member Name Role Phone Sindi Montgomery PAVEL Primary Care Provider [phone] Allergies Active Allergy Reactions Criticality Noted Date [...] on file Sexual Orientation Not on file Obstetrics History Last Filed Vital Signs Vital Sign Reading Time Taken Comments Blood Pressure - - Pulse - - Temperature - - Respiratory Rate - - Oxygen Saturation - - Inhaled Oxygen Concentration - - Weight 79.4 kg (175 lb) 05/12/2020 1501 EST pe p t Height 182.9 cm (6') 05/12/2020 1501 EST per pt Body Mass Index 23.73 05/12/2020 1501 EST Plan of Treatment Health Maintenance Due Date Last Done Comments Hepatitis C Screen 1976 Pneumococcal Immunization (1 of 2 - PCV) 1982 Hepatitis B Vaccine (1 of 3 - 19+ 3-dose series) 09/25 COVID-19 Vaccine ( - 2023- season) 2023 Insurance [facility] Care Teams Seafood Service Team Member Relationship Specialty Start Date End Date Sindi Montgomery FNP [address] [facility] [address] [place] [id number] PCP - General 08/26/21
--- OUTSIDE RECORDS SUMMARY | 2024-04-29 21:57 | XMS_ITS | Encounter Summary ---
Author Organization [facility] Address [address] [place] [address] Care Team Providers Care Sinter Press Operator Name Role Phone Unavailable Primary Care Provider Unavailabl e Encounter Details Date Type Department Care Team (Latest Contact Info) Description 06/12/2017 8:27 EST - 06/25/2017 23:59 EST Hospital Encounter [facility] - [address] [place] [address] Esperanza Mendoza PA-C [facility] [address] Discharge Disposition: Auto Discharge Social History Tobacco Use Types Packs/Day Years Used Date Smoking Tobacco: Never Assessed Sex and Gender Information Value Date Recorded Sex Assigned at Not on file Legal Sex Male 18:33 EST Gender Identity Not on file Sexual Orientation Not on file documented as of this encounter Discharge Diagnoses Diagnosis M77.12 Lateral epicondylitis, left elbow-M77.12[ICD-10-CM] documented in this encounter Discharge Disposition Disposition Code Departure Means Destination Auto Discharge Home documented in this encounter Plan of Treatment Not on file documented as of this encounter Visit Diagnoses Not on filedocumented in this encounter
--- OUTSIDE RECORDS SUMMARY | 2024-04-29 21:57 | XMS_ITS | Encounter Summary ---
Author Organization [facility] Address [address] [place] [address] Care Team Providers Care Utility Specialist Name Role Phone Unavailable Primary Care Provider Unavailabl e Reason for Visit * Reason Comments Elbow Pain lt elbow * Prior Authorization (Routine) - Specialty Report Received Specialty Diagnoses / Procedures Referred By Contisauro t Referred To Contact Orthopedic Surgery Diagnoses Left lateral epicondylitis Nathaniel Hickey MD Phone: tel: fax: Nathaniel Hickey MD Phone: tel: fax: Referral ID Status Reason Start Date Expiration Date Visits Requested Visits Authorized [id number] Specialty Report Received Specialty Services Required 11/04/2017 1 1 Encounter Details Date Type Department Care Team (Latest Contact Info) Description 01/06/2018 15:45 EDT Office Visit [facility] Sports Medicine Program - [address] [address] Nathaniel Hickey MD [address] [place] [phone] Left lateral epicondylitis (Primary Dx) Discharge [...] 09/16/2017 15:47 EDT documented in this encounter Discharge Disposition Disposition Code Departure Means Destination Auto Discharge documented in this encounter Progress Notes * Nathaniel Hickey MD - 01/06/2018 1545 EDT No chief complaint on file. SUBJECTIVE: Michael Barr is a 42 y.o. right hand dominant male who presents to the office to follow up now 5 months after his left elbow PRP procedure. He was been doing PT at at [facility] but this was a little rough. He then went to [facility]. This has been going well. He has [...] will have a return of his symptoms. Hewill also likely need physical therapy intermittently in [...]
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
--- OUTSIDE RECORDS SUMMARY | 2024-04-29 21:57 | XMS_ITS | Encounter Summary ---
Author Organization [facility] Address [address] [place] [address] Care Team Providers Care Shot Examiner Name Role Phone Unavailable Primary Care Provider Unavailabl e Reason for Referral * Consult (Routine) - Specialty Report Received Specialty Diagnoses / Procedures Referred By Contac t Referred To Contact Orthopedic Surgery Diagnoses Left lateral epicondylitis Esperanza Mendoza PA-C Phone: tel: fax: Nathaniel Hickey MD Phone: tel: fax: Referral ID Status Reason Start Date Expiration Date Visits Requested Visits Authorized [id number] Specialty Report Received Specialty Services Required 05/08/2017 1 1 Question Answer Reason for Request: Left lateral epicondylitis Comments Please eval as NPV for if patient is a candidate for PRP / PNT. * PT/OT/ST (Routine) - Specialty Report Received Specialty Diagnoses / Procedures Referred By Contisauro t Referred To Contact Rehab Therapies Diagnoses Left lateral epicondylitis Esperanza Mendoza PA-C Phone: tel: fax: [facility] Rehabilitation Therapy - [address] [address] Phone: tel: fax: Referral ID Status Reason Start Date Expiration Date Visits Requested Visits Authorized [id number] Specialty Report Received Specialty Services Required 05/08/2017 1 1 Question Answer Reason for Request: left lateral epicondylitis Comments Please eval and treat - patient with PRP consult pending. Reason for Visit * Reason Comments Elbow Injury lt elbow pain doi 2. .16 no dos * Consult (Routine) - Closed Specialty Diagnoses / Procedures Referred By Monty bradley Referred To Contact Orthopedic Surgery Diagnoses Lateral epicondylitis, left elbow Viktor Lindquist Jr., MD [address] [place] [address] Phone: tel: fax: [facility] Hand & Upper Extremity Program - [address] [place] [address] Phone: tel: fax: Referral ID Status Reason Start Date Expiration Date Visits Re quested Visits Authorized [id number] Closed 1 1 Encounter Details Date Type Department Care Team (Latest Contact Info) Description 05/08/2017 9:00 EST Office Visit [facility] Hand & Upper Extremity Program - [address] [place] [address] Esperanza Mendoza PA-C [address] [place] [address] Left lateral epicondylitis (Primary Dx) [...] - - Weight 79.4 kg (175 lb) 05/08/2017 0912 EST Height 182.9 cm (6') 05/08/2017 0912 EST Body Mass Index 23.73 05/08/2017 0912 EST documented in this encounter Progress Notes * Esperanza Mendoza PA - 05/08/2017 0900 EST PROBLEM: Left lateral epicondylitis - WC DOI 06/06/15 SUBJECTIVE: Michael Barr is a 41 y.o. right hand dominant male who presents to the office today for evaluation of his left elbow pain which has been present since May 2015. This is a Workmen's Compensation case. 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 He thinks this may have caused the injury. He has been under the care of Dr. Lindquist and has tried wrist splinting/ bracing and ibuprofen. He has also tried PT which makes him feel temporarily better but does not give him lasting improvement. He has had 2 cortisone shots which significantly improved his pain but it ultimately returned. He notes that he can lift with his arm straight but if he pronates then this provokes pain enough that it is hard for him to raise heavy jug of fluid to his mouth. Eyes new patient intake he describes his pain as an ache, sharp and stiff. This occurs at rest, with activity and at night. He rates his pain at a 2/10 at the lowest and a 9/10 at the highest. He notes swelling present. He denies paresthesias. He denies any previous injury to this arm or hand. A 10-point review of systems has been reviewed from the new patient intake sheet and all are negative except: Cold/heat intolerance and joint pain. The past medical, family and social history have been reviewed in the patient chart. He is a current 1 pack per day smoker ??27 years. He is not a diabetic. 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 He enjoys kayaking, motorcycle, fishing, hiking, being outside during spring, summer and fall. No past medical history on file. No past surgical history on file. No current outpatient prescriptions on file prior to visit. No current facility-administered medications on file prior to visit. OBJECTIVE: Ht 182.9 cm (72) Wt 79.4 kg (175 lb) BMI 23.73 kg/m2 On physical exam, the patient is found to be a very pleasant and cooperative white male. Psych: He is alert and oriented x 3 with normal affect. Constitutional: He is well-developed and in no significant distress. Eyes: Sclerae clear. Resp: Breathing is regular and nonlabored without audible wheezing. Skin: On examination of the left upper extremity the skin is intact. Hem: There is no ecchymosis. Msk: On examination of his left upper extremity he is well-developed with no obvious deformities. He has pain to palpation directly over his lateral epicondyle. He has increased pain with resisted wrist extension and with long finger extension against resistance. He has no significant increase in pain with resisted wrist flexion. He can fully pronate and supinate. Neuro-vascularly: Sensation intact to light touch in the distribution of the median, radial and ulnar nerves with good cap refill. DIAGNOSTICS: MR of the left elbow (04/11/17): Tendinitis versus severe partial tear of the common extensor tendon. ASSESSMENT: 41-year-old male with left lateral epicondylitis PLAN: 1. I discussed with Michael that I think he has done an excellent job with conservative management of his injury to this point. I would have followed a very similar treatment course to what he has previously undergone. At this point I would like him to continue to ice his elbow, wear his wrist splint and resume therapy while awaiting a consult with Dr. Nathaniel Hickey. I do not expect therapy to completely resolve his pain given his previous treatments however I do think it worthwhile for partial / temporary improvement of his persistent pain. 2. We did discuss the options of lateral epicondyle debridement versus PRP/PNT. At this point I will place a consult for Dr. Hickey. 3. He will follow-up with me as needed. He knows call with any questions or concerns that do arise. Dr. Nathaniel Hickey was the attending physician available in the clinic today if needed. A consultationwas not required. This note was prepared using voice recognition software and the EMR. There may beinadvertent errors and omissions. Esperanza Mendoza PA-C 05/08/2017 documented in this encounter Plan of Treatment Scheduled Referrals Name Type Priority Associated Diagnoses Orde r Schedule AMB CONS/FOLLOW UP HAND THERAPY Outpatient Referral Routine Left lateral epicondylitis Ordered: 05/08/2017 AMB CONS/FOLLOW UP ORTHOPEDICS Outpatient Referral Routine Left lateral epicondylitis Ordered: 05/08/2017 documented as of this encounter Visit Diagnoses Diagnosis Left lateral epicondylitis- Primary Lateral epicondylitis of elbow documented in this encounter
--- OUTSIDE RECORDS SUMMARY | 2024-04-29 21:57 | XMS_ITS | Encounter Summary ---
Author Organization [facility] Address [address] [place] [address] Care Team Providers Care Form Tamping Machine Operator Name Role Phone Sindi Montgomery PAVEL Primary Care Provider [phone] Reason for Visit * Reason Onset Date Comments Paperwork request 10/03/2021 Driver Courier's offic e Tom Encounter Details Date Type Department Care Team (Late st Contact Info) Description 10/03/2021 Telephone [facility] Orthopedic Surgery - [address] [place] [address] Mauri Ramos MD [address] [place] [address] Paperwork request (Driver Courier's office Tom) Social History Tobacco Use Types Packs/Day Years [...] encounter Miscellaneous Notes * Telephone Encounter - Katey Burger - 10/03/2021 1623 EDT Received a letter from patient's internal communications writer concerning getting diagnotic testing authorized that dr. Ramos previously requested. Labelled and put in workers' comp box documented in this encounter Plan of Treatment Not on file documented as of this encounter Visit Diagnoses Not on filedocumented in this encounter Care Teams Form Tamping Machine Operator Relationship Specialty Start Date End Date Snidi Montgomery FNP [address] [place] [address] [place] [phone] PCP - General 08/26/21 documented as of this encounter
--- OUTSIDE RECORDS SUMMARY | 2024-04-29 21:57 | XMS_ITS | Encounter Summary ---
Author Organization [facility] Address [address] [place] [address] Care Team Providers Care Screw Machine Operator Single Spindle Name Role Phone Sindi Montgomery PAVEL Primary Care Provider [phone] Encounter Details Date Type Department Care Team (Late st Contact Info) Description 09/21/2021 Lab Requisition [facility] Pathology & Laboratory Medicine - [facility] [address] [place] [address] Hope Hammond, DO [address] [place], [place] [id number] Encounter for other general examination Social History Tobacco Use Types Packs/Day Years [...] Procedure Name Priority Date/Time Associated Diagnosis Comments SURGICAL PATHOLOGY Today 09/21/2021 13 :32 EDT Encounter for other general examination documented in this encounter Results * SURGICAL PATHOLOGY (09/21/2021 13:32 EDT) Note to Patient The following pathology results have been interpreted by your pathologist and may be available to you before your health provider has had the opportunity to review them. Please allow time for your provider to receive these results and explore management options, if applicable. 09/26/2021 16:22 [facility] Final Diagnosis A. COLON, 20 CM, POLYP, BIOPSY: - Hyperplastic polyp. B. COLON, CECUM, BIOPSY: - Colonic mucosa with no specific pathologic features. C. COLON, 80 CM, BIOPSY: - Colonic mucosa with no specific pathologic features. D. COLON, 60 CM, BIOPSY: - Colonic mucosa with no specific pathologic features. E. COLON, 40 CM, BIOPSY: - Colonic mucosa with no specific pathologic features. F. RECTUM, BIOPSY: - Rectal mucosa with no specific pathologic features. 09/26/2021 16:22 [facility] Attestation By the signature below, the attending physician certifies that they have 1) personally conducted a gross and/or microscopic examination of the described specimen(s), and/or personally interpreted the results of laboratory testing of the described specimen(s), and 2) personally rendered or confirmed the above diagnosis. 09/26/2021 16:22 [facility] at 1622 Clinical History Diarrhea 09/26/2021 16:22 [facility] Gross Description A. Received in formalin labelled with proper patient identification (initials R, P) and polyp @ 20 cm is an irregular to nodular seo-brown tissue, 1.0 x 0.3 x 0.2 cm. Entirely submitted in A1. B. Received in formalin labelled with proper patient identification (initials R, P) and Bx cecum is a pale mcdermott tissue, 0.2 x 0.1 by less than 0.1 cm. Entirely submitted in B1. C. Received in formalin labelled with proper patient identification (initials R, P) and Bx @ 80 cm is a seo irregular tissue, 0.4 x 0.12 x 0.1 cm. Entirely submitted in C1. D. Received in formalin labelled with proper patient identification (initials R, P) and Bx @ 60 cm? is a seo irregular tissue, 0.4 x 0.2 x 0.1 cm. Entirely submitted in D1. E. Received in formalin labelled with proper patient identification (initials R, P) and Bx @ 40 cm is a seo irregular tissue, 0.3 x 0.2 x 0.1 cm. Entirely submitted in E1. F. Received in formalin labelled with proper patient identification (initials R, P) and rectal Bx is a seo-brown tissue, 0.4 x 0.2 x 0.2 cm. Entirely submitted in F1. CAMERON CHAIREZ(ASCP) 2021 8:28 09/26/2021 16:22 EDT [facility] Performing Lab [facility] 09/26/2021 16:22 EDT [facility] Scanned Images 09/26/2021 16:22 EDT [facility] Tissue SPECIMEN FROM RECTUM / Unknown 09/21/2021 13:32 EDT 09/21/2021 23:58 EDT Tissue specimen (specimen) CECUM STRUCTURE / Unknown 09/21/2021 13:32 EDT 09/21/2021 23:58 EDT Tissue specimen (specimen) COLON STRUCTURE / Unknown 09/21/2021 13:32 EDT 09/21/2021 23:58 EDT Tissue specimen (specimen) COLON STRUCTURE / Unknown 09/21/2021 13:32 EDT 09/21/2021 23:58 EDT Tissue specimen (specimen) COLON STRUCTURE / Unknown 09/21/2021 13:32 EDT 09/21/2021 23:58 EDT Tissue specimen (specimen) SPECIMEN FROM RECTUM / Unknown 09/21/2021 13:32 EDT 09/21/2021 23:58 EDT us Hope Hammond DO PATHOLOGY ORDERABLES Final Re sult [facility] [address] [place] [address] documented in this encounter Visit Diagnoses Diagnosis Encounter for other general examination documented in this encounter Care Teams Screw Machine Operator Single Spindle Relationship Specialty Start Date End Date Sindi Montgomery FNP [address] [place] [address] [place] [phone] PCP - General 08/26/21 documented as of this encounter
--- OUTSIDE RECORDS SUMMARY | 2024-04-29 21:57 | XMS_ITS | Encounter Summary ---
Author Organization [facility] Address [address] [place] [address] Care Team Providers Care Synthetic Gem Press Operator Name Role Phone Unavailable Primary Care Provider Unavailabl e Encounter Details Date Type Department Care Team (Late st Contact Info) Description 05/12/2020 Orders Only [facility] Orthopedic Surgery - [address] [place] [address] Mauri Ramos MD [address] [place] [address] Social History Tobacco Use Types Packs/Day [...] documented in this encounter Progress Notes * Jennifer Hameed MA - 05/12/2020 1610 EST Patient met with DR Ramos today , DR Ramos has decided to hold off on getting an MRI at this time. DR Ramos has ordered an EMG instead. Patient is aware. We have spoke to MRI scheduling and theorder has been cancelled. documented in this encounter Plan of Treatment Not on file documented as of this encounter Visit Diagnoses Not on filedocumented in this encounter
--- OUTSIDE RECORDS SUMMARY | 2024-04-29 21:57 | XMS_ITS | Encounter Summary ---
Author Organization [facility] Address [address] [place] [address] Care Team Providers Care Payroll Secretary Name Role Phone Unavailable Primary Care Provider Unavailabl e Reason for Referral * Prior Authorization (Routine) - Specialty Report Received Specialty Diagnoses / Procedures Referred By Monty bradley Referred To Contact Orthopedic Surgery Diagnoses Left lateral epicondylitis Nathaniel Hickey MD Phone: tel: fax: Nathaniel Hickey MD Phone: tel: fax: Referral ID Status Reason Start Date Expiration Date Visits Requested Visits Authorized [id number] Specialty Report Received Specialty Services Required 11/04/2017 1 1 Question Answer Reason for Request: Left lateral elbow PRP injection Scheduling Comments (optional ? describe specific scheduling needs if applicable): Scheduled 02/06/18 Comments The purpose of this consult request is to inform the scheduling staff that a procedure/surgery needs to be prior-authorized before it is scheduled. Reason for Visit * Reason Comments Follow-up Left elbow Encounter Details Date Type Department Care Team (Latest Contact Info) Description 11/04/2017 15:45 EDT Office Visit [facility] Sports Medicine Program - [address] [place] [address] Nathaniel Hickey MD [address] [place] [address] Left lateral epicondylitis (Primary Dx) [...] Progress Notes * Nathaniel Hickey MD - 11/04/2017 1545 EDT Chief Complaint Patient presents with ??? Follow-up Left elbow SUBJECTIVE: Michael Barr is a 42 y.o. right hand dominant male who presents to the office to follow up now 3 months after his left elbow PRP procedure. He was been doing PT at at [facility] but this was a little rough. He then went to [facility]. This has been going well. He did [...] treatment plan. He will continue PT at [facility]. Continue with the activity modification to avoid lifting or carrying. He will return in 2 months. We hope to discuss MMI at that time however if he is not fully improvedwe will consider repeat PRP. We did grab a date for early January for that PRP procedure just in case he needs it. The patient verbalized understanding of [...] Diagnoses Orde r Schedule AMB CONS/FOLLOW UP PROCEDURE PRIOR AUTHORIZATION REQUEST Outpatient Referral Routine Left lateral epicondylitis Ordered: 11/04/2017 documented as of this encounter Visit Diagnoses Diagnosis Left lateral epicondylitis- Primary Lateral epicondylitis of elbow documented in this encounter
--- OUTSIDE RECORDS SUMMARY | 2024-04-29 21:57 | XMS_ITS | Encounter Summary ---
Author Organization [facility] Address [address] [place] [address] Care Team Providers Care Curator [employer]ological [employer] Name Role Phone Unavailable Primary Care Provider Unavailabl e Reason for Visit * Reason Comments Elbow Pain LT LATERAL ELBOW DOI 2.9.16 NO DOS W/C Encounter Details Date Type Department Care Team (Latest Contact Info) Description 10/02/2018 10:00 EDT Office Visit [facility] Sports Medicine Program - [address] [place] [address] Nathaniel Hickey MD [address] [place] [address] Left lateral epicondylitis (Primary Dx) [...] Date End Date diclofenac sodium 1 % gel Apply 1 - 2 inches of gel topically to left elbow 2 - 4 times a day as needed for pain. 100 g 2 10/02/2018 0 documented in this encounter Progress Notes * Nathaniel Hickey MD - 10/02/2018 1000 EDT [...]
--- OUTSIDE RECORDS SUMMARY | 2024-04-29 21:57 | XMS_ITS | Encounter Summary ---
Author Organization [facility] Address [address] [place] [address] Care Team Providers Care Battery Starter Name Role Phone Unavailable Primary Care Provider Unavailabl e Reason for Visit * Reason Onset Date Comments Appointment Related 05/19/2017 Encounter Details Date Type Department Care Team (Late st Contact Info) Description 05/19/2017 Telephone [facility] Rehabilitation Therapy - [address] [address] Therapy, Physical Appointment Related Social History Tobacco Use Types Packs/Day Years Used Date Smoking Tobacco: Never Assessed Sex and Gender Information Value Date Recorded Sex Assigned at Not on file Legal Sex Male 18:33 EST Gender Identity Not on file Sexual Orientation Not on file documented as of this encounter Miscellaneous Notes * Telephone Encounter - Meena Jacobo - 05/19/2017 1356 EST Images from the original note were not included. [facility] REHABIL[facility]ATION THERAPY - [address] [address] Telephone Intake Information for Scheduling NEW Patients [...]
--- OUTSIDE RECORDS SUMMARY | 2024-04-29 21:58 | XMS_ITS | Encounter Summary ---
Author Organization [facility] Address [address] [place] [address] Care Team Providers Care Gunstock Spray Unit Feeder Name Role Phone Unavailable Primary Care Provider Unavailabl e Encounter Details Date Type Department Care Team (Latest Contact Info) Description 09/07/2003 17:33 EDT Hospital Encounter [facility] Emergency Department - [address] [place] [address] [place] [address] Emergency, Default, MD Discharge Disposition: Home or Self Care Social History Tobacco Use Types Packs/Day Years [...]
--- OUTSIDE RECORDS SUMMARY | 2024-04-29 21:58 | XMS_ITS | Encounter Summary ---
Author Organization [facility] Address [address] [place] [address] Care Team Providers Care Pharmacognosy Teacher Name Role Phone Unavailable Primary Care Provider Unavailabl e Encounter Details Date Type Department Care Team (Late st Contact Info) Description 09/07/2003 Office Visit [facility] [address] [place] [address] Guicho Mckenzie MD Social History Tobacco Use Types Packs/Day Years Used Date Smoking Tobacco: Never Assessed Sex and Gender Information Value Date Recorded Sex Assigned at Not on file Legal Sex Male 18:33 EST Gender Identity Not on file Sexual Orientation Not on file documented as of this encounter Progress Notes * Guicho Mckenzie MD - 06/30/2009 1812 EST Emergency Department ??? Physician Summary Registration Date/Time 09/07/2003 17:33 Arrived- By private vehicle. Historian- patient. HISTORY OF PRESENT ILLNESS Chief Complaint- EYE PAIN and FOREIGN BODY. This started today and is characterized as moderate in severity. He sustained injury. This occurred at work. The patient has had direct trauma. Mechanism- stick to eye Not injured from contact lenses. Associated symptoms: Eye pain, discomfort, redness and irritation. Photophobia. No eye burning, eyedischarge, eye matting, eye itching or eyelid swelling. No blurred vision, double vision, decreasedvision or loss of vision. REVIEW OF SYSTEMS No fever, sore throat or cough. PAST HISTORY See nurses notes. Has not had a prior eye injury. The patient does not wear contact lenses. No history of heart disease, diabetes mellitus, lung disease, renal disease or GI disease. Has not had glaucoma. See nurses notes. Allergies: See nurses notes. SOCIAL HISTORY Smoker: 1 pack per day. The patient drinks occasionally. ADDITIONAL NOTES The nursing notes have been reviewed with agreement regarding the chief complaint, HPI, PMHand patient medications. PHYSICAL EXAM Appearance: Alert. No acute distress. Vital Signs: The vital signs have been reviewed and appear to be correct. HEENT: Ears normal. Nose normal. Pharynx normal. Head appears normal to external inspection. Eyes: Left eyelid everted for examination. Visual acuity noted- see nurse's notes. Eyelids appear normal to inspection. Conjunctivae and sclerae appear normal to inspection. Pupils equal, round and reactive to light. Accommodation normal. Funduscopic exam normal. Visual vizcarra normal. EOMs intact. Periorbital areas appear normal to inspection. Left eye examined with slit lamp. Anterior chambers clear. Anterior chambersof normal depth. Rt Eye: Right eye exam normal. Multiple corneal abrasions located centrally. Neck: Neck supple. Normal inspection. CVS / Respiratory: No respiratory distress. Breath sounds normal. Heart sounds normal. Abdomen:Abdomen nontender. No organomegaly. Skin: No rash. Extremities: Extremitiesnegative. Neuro: Oriented X 3. Mood/affect normal. No motor deficit. No sensory deficit. Reflexes normal. CLINICAL IMPRESSION Left eye corneal abrasion. INSTRUCTIONS Use 2 drops L eye every [address] Mondragon for pain, redness or discharge Prescription Medications: Vicodin 5 mg: take 1 to 2 orally every 6 hours as needed for pain. Dispense fifteen (15). No refills. Generic substitute OK. Follow-up: Follow up with an news agent. Follow-up: RAJESH MONDRAGON MD, EYE, , [address] [place] [address], [id number] Guicho Mckenzie M.D. (Electronically signed Guicho Mckenzie M.D. 09/07/2003 18:30) Physician's Clinical Report Emergency Department ??? Nursing Summary Registration Date/Time 09/07/2003 17:33 TRIAGE Initial Assessment Triage time 17:24 Sep 07 2003 --17:24 Geeta Ayala R.N. Acuity: LEVEL 4. BP: 123 / 72 HR: 82 RR: 16 Temp: 36.6 tympanic Alert. --17:27 Geeta Ayala R.N. Medications None. --17:27 Geeta Ayala R.N. Allergies PENICILLIN. --17:27 Geeta Ayala R.N. History Chief Complaint: REDNESS, PAIN, FOREIGN BODY and INJURY TO LEFT EYE. This started today. The patient sustained injury. Pain level now: 8/10. Mechanism- stick in eye Treatment [employer]: irrigation. PAST HX: Negative. SOCIAL HX: Smoker: 1 pack per day. The patient admits to drinking alcohol occasionally. Arrived by private vehicle. Historian: patient. --17:27 Geeta Ayala R.N. PHYSICAL ASSESSMENT Visual acuity without corrective lenses: left eye 20/60; right eye 20/40. --17:42 Dulce Murillo NURSING PROGRESS NOTES Progress VICODIN 2 tab PO. --18:17 Dulce Chairez correction to prior entry - Vicodin given by VICODIN mg PO. --18:17 Rasta Dawn R.N. (GYCLOGEL 2GTTS L EYE, TOBRAMYCIN 2GTTS L EYE). --18:18 Rasta Dawn R.N. DISPOSITION / DISCHARGE Condition at departure: improved. No barriers to learning present. Discharge instructions reviewed with the patient. Warnings reviewed. Reviewed medication side effects; prescription (s) given to thepatient. Treatments reviewed. Patient verbalized understanding. The patient was discharged home. The patient left the Emergency Department ambulatory and via private vehicle. --18:18 Rasihda Lopez R.N., E.M.T. Jamie Orzech E.M.T. Paul O'Kane, R.N. Locked/Released at 09/07/2003 18:19 by Rasta Dawn R.N. documented in this encounter Plan of Treatment Not on file documented as of this encounter Visit Diagnoses Not on filedocumented in this encounter
[2024-04-29 22:10] LABS: HCT 42.6 % (40.0-50.0); HGB 14.7 g/dL (13.5-17.5); MCH 33.9 pg (27.0-33.0); MCHC 34.5 % (32.0-36.0); MCV 98 fL (80-95); MPV 10.6 fL (8.0-11.0); Platelet Count 256 10^3/uL (130-400); RBC 4.34 10^6/uL (4.36-5.78); RDW 12.1 % (11.8-14.1); RDW-SD 44.2 fL; WBC 5.32 10^3/uL (4.4-10.8)
[2024-04-29 22:25] LABS: ALT 12 U/L (16-63); AST 18 U/L (15-37); Alkaline Phosphatase 88 U/L (46-116); Anion Gap 6.8 mmol/L (3-11); BUN 14 mg/dL (7-18); Bilirubin, Total 0.48 mg/dL (0.2-1.0); CO2 30.2 mmol/L (21.0-32.0); CREATININE 0.9 mg/dL (0.70-1.30); Calcium 8.7 mg/dL (8.5-10.1); Calculated LDL 94 mg/dL (<100); Chloride 109 mmol/L (98-107); Cholesterol 143 mg/dL (<200); Estimated GFR 106.01 (mL/min/1.73m2); Glucose 88 mg/dL (74-106); HDL Cholesterol 42 mg/dL (40-60); Potassium 4.4 mmol/L (3.5-5.1); Sodium 146 mmol/L (136-145); Total Protein 6.6 g/dL (6.4-8.2); Triglyceride 36 mg/dL (<150)
== END 2024-04-29 21:56 | disposition home or self-care (01) ==
LOC: NCHCN 21:55
PROVIDERS: PCP Nurse Practitioner Family; Visit Provider Nurse Practitioner Family
DX: Z00.00 Encounter for general adult medical examination without abnormal findings (principal)
CPT/HCPCS: 80053; 80061; 85027